=== PATIENT | female | born 2000 | race Caucasian/White ===

== ENCOUNTER 2023-04-06 16:36 | Observation (INO) ==
--- NOTE | 2023-04-06 17:10 | Emergency Department Note ---
Impression & Plan Acute appendicitis, Abdominal pain ED Provider Note NAME: ISIS OCAMPO AGE: 22 SEX: F : 2000 ARRIVES VIA: Walk-In INFORMANT: Patient ED PROVIDER(S): Viraj Thompson DO CHIEF COMPLAINT: Right lower quadrant abdominal pain HPI: Patient is a 22-year-old female who presents to the ER for right lower quadrant abdominal pain. Symptoms started this past Friday associated with nausea. Has been having some trouble with having bowel movements. Denies any dysuria, urgency, or frequency. Patient is not sexually active. No vaginal bleeding or vaginal discharge. No other exacerbating or remitting factors. Has been getting gradually worse. Has been constant. No belly surgeries. ADDITIONAL HISTORY OBTAINED: Per HPI Chronic Medical/Social Conditions Affecting Care: Per HPI PAST MEDICAL HISTORY:See Below PAST SURGICAL HISTORY:See Below FAMILY HISTORY:See Below SOCIAL HISTORY:See Below HOME MEDICATIONS:See Below ALLERGIES:See Below VITALS:See Below PHYSICAL EXAMINATION: GENERAL: Sitting up in bed, alert, well appearing, well nourished, no distress, non-toxic EYE EXAM: normal conjunctiva. OROPHARYNX: no exudate, no erythema, lips, buccal mucosa, and tongue normal and mucous membranes are moist NECK: supple, no nuchal rigidity, no adenopathy, non-tender LUNGS: Clear to auscultation. Normal chest wall mechanics HEART: no murmurs, S1 normal and S2 normal ABDOMEN: abdomen soft, TTP in RLQ, normo-active bowel sounds, no masses, no rebound or guarding. UPPER EXTREMITIES: upper extremities are grossly normal. LOWER EXTREMITIES: No pitting edema. NEURO EXAM: Normal sensorium, cranial nerves II-XII grossly intact, normal speech, no gross weakness of arms, no gross weakness of legs. MEDICAL DECISION MAKING: Patient is a 22-year-old female who presents ER for right lower quadrant abdominal pain. IV was established blood work was obtained. Labs show mild leukocytosis of 15,000. No significant anemia. BMP with mild hypokalemia 3.4. LFTs bilirubin was unremarkable. Lipase was normal. UA was clean. was negative. CT abdomen pelvis confirms acute appendicitis. Patient was given IV cefoxitin. Discussed with general surgery and patient was taken to the OR. External Records Reviewed: None Consults/Care Managements Discussions: Per [facility] Triage Nursing notes reviewed. Limited review of prior medical records performed Vital Signs: reviewed and remarkable for HTN Differential diagnosis: Differential diagnoses includes but is not limited to gastritis, peptic ulcer disease, GERD, gallbladder disease, pancreatitis, small bowel obstruction, appendicitis, diverticulitis, hernia, urinary tract infection, torsion, perforation, trauma, infectious. ER treatment provided: See below Diagnostics interpreted by me include EKG and cardiac monitoring as listed below: -Cardiac Monitoring: An order was placed for continuous cardiac monitoring. The monitor shows a rate of 101 with sinus rhythm. -ECG: none -Laboratory studies:Interpreted by me as stated above in MDM and shown below. Imaging studies: Xrays: As interpreted by me:none CTs show: CT abdomen pelvis per my read showed no obvious bowel obstruction CT abdomen pelvis per radiology showed acute appendicitis Procedures:none Critical Care: None Past Med/Surg History Social History Smoking Status: Never smoker Feels Safe at Home: Yes Allergies Allergies Allergy/AdvReac Type Severity Reaction Status Date / Time No Known Allergies Allergy Unverified 04/06/23 19:41 Home Meds Home Medications Medication Instructions Recorded Confirmed No Known Home Medications 04/06/23 04/06/23 Results & Data (ED) Vital Signs Vital Signs - 24 hr 04/06/23 16:39 04/06/23 17:05 04/06/23 17:10 Temperature 36.8 C Temperature Source Temporal Artery Scan Pulse Rate 107 H 106 H 99 H Pulse Rate from SpO2 Sensor Pulse Rhythm Regular Respiratory Rate 18 12 Respiratory Effort / Characteristics Non-Labored Spontaneous Respiratory Depth Normal Respiratory Pattern Regular Blood Pressure 145/88 H Blood Pressure Mean 107 Pulse Oximetry 95 98 Oxygen Delivery Method Room Air Room Air Sepsis Recent Fever Within 48 Hours No Sepsis New/Unexplained Change in Mental Status No Sepsis Action Taken by Nursing No Action Required 04/06/23 17:10 04/06/23 17:30 04/06/23 18:10 Temperature Temperature Source Pulse Rate 111 H 90 98 H Pulse Rate from SpO2 Sensor Pulse Rhythm Respiratory Rate 15 20 22 Respiratory Effort / Characteristics Respiratory Depth Respiratory Pattern Blood Pressure 138/100 136/107 H 134/89 Blood Pressure Mean 112 120 104 Pulse Oximetry 94 98 98 Oxygen Delivery Method Room Air Room Air Sepsis Recent Fever Within 48 Hours Sepsis New/Unexplained Change in Mental Status Sepsis Action Taken by Nursing 04/06/23 19:00 04/06/23 19:10 04/06/23 19:20 Temperature Temperature Source Pulse Rate 110 H 109 H 117 H Pulse Rate from SpO2 Sensor 108 H 117 H Pulse Rhythm Respiratory Rate 20 15 17 Respiratory Effort / Characteristics Respiratory Depth Respiratory Pattern Blood Pressure 130/85 Blood Pressure Mean 100 Pulse Oximetry 99 100 99 Oxygen Delivery Method Room Air Sepsis Recent Fever Within 48 Hours Sepsis New/Unexplained Change in Mental Status Sepsis Action Taken by Nursing 04/06/23 19:30 04/06/23 19:40 04/06/23 19:50 Temperature Temperature Source Pulse Rate 130 H 111 H 113 H Pulse Rate from SpO2 Sensor 128 H 108 H Pulse Rhythm Respiratory Rate 14 17 22 Respiratory Effort / Characteristics Respiratory Depth Respiratory Pattern Blood Pressure Blood Pressure Mean Pulse Oximetry 100 100 Oxygen Delivery Method Sepsis Recent Fever Within 48 Hours Sepsis New/Unexplained Change in Mental Status Sepsis Action Taken by Nursing 04/06/23 19:52 04/06/23 19:52 04/06/23 20:10 Temperature Temperature Source Pulse Rate 97 H 101 H Pulse Rate from SpO2 Sensor 101 H Pulse Rhythm Respiratory Rate 21 31 H Respiratory Effort / Characteristics Respiratory Depth Respiratory Pattern Blood Pressure 133/90 Blood Pressure Mean 107 Pulse Oximetry 97 Oxygen Delivery Method Sepsis Recent Fever Within 48 Hours Sepsis New/Unexplained Change in Mental Status Sepsis Action Taken by Nursing 04/06/23 20:20 04/06/23 20:35 Temperature Temperature Source Pulse Rate 103 H Pulse Rate from SpO2 Sensor 104 H Pulse Rhythm Respiratory Rate 19 Respiratory Effort / Characteristics Respiratory Depth Respiratory Pattern Blood Pressure Blood Pressure Mean Pulse Oximetry 98 Oxygen Delivery Method Room Air Sepsis Recent Fever Within 48 Hours Sepsis New/Unexplained Change in Mental Status Sepsis Action Taken by Nursing Laboratory Data 04/06/23 16:58 04/06/23 16:58 Lab Results 04/06/23 04/06/23 Range/Units 16:58 17:19 WBC 15.24 H (4.8-10.8) K/ul RBC 4.77 (4.20-5.40) M/uL Hgb 14.3 (12.0-16.0) g/dl Hct 41.9 (37.0-47.0) % MCV 87.8 (80.0-100.0) fL MCH 30.0 (25.0-34.0) pg MCHC 34.1 (32.0-36.0) g/dL RDW Std Deviation 39.3 (36.4-46.3) fL RDW Coeff of Nay 12.2 (11.5-14.5) % Plt Count 255 (130-400) K/uL MPV 10.3 (9.4-12.4) fL Immature Gran % (Auto) 0.3 % Neut % (Auto) 80.3 % Lymph % (Auto) 12.1 % [place] % (Auto) 6.5 % Eos % (Auto) 0.5 % Baso % (Auto) 0.3 % Neut # (Auto) 12.25 H (1.40-6.50) K/uL Lymph # (Auto) 1.84 (1.20-3.40) K/uL [place] # (Auto) 0.99 H (0.11-0.59) K/uL Eos # (Auto) 0.08 (0.00-0.50) K/uL Baso # (Auto) 0.04 (0.00-0.20) K/uL Immature Gran # (Auto) 0.04 (0.01-0.20) K/uL Sodium 136 (136-145) mmol/L Potassium 3.4 L (3.5-5.1) mmol/L Chloride 98 (98-107) mmol/L Carbon Dioxide 27 (21-32) mmol/L Anion Gap 11 (3-11) BUN 6 (6-23) mg/dl Creatinine 0.79 (0.6-1.2) mg/dl Est Cr Clr Drug Dosing 122.8 ml/min Est GFR ( Amer) 124.9 ml/min Est GFR (Non-Af Amer) 107.8 ml/min BUN/Creatinine Ratio 7.6 L (10-20) Glucose 94 (70-99(Fasting)) mg/dl Calcium 10.9 H (8.6-10.3) mg/dl Total Bilirubin 0.8 (0.2-1.0) mg/dl AST 16 (13-39) U/L ALT 11 (7-52) U/L Alkaline Phosphatase 108 H (34-104) U/L Total Protein 8.9 H (6.0-8.3) gm/dl Albumin 5.1 H (3.4-5.0) gm/dl Globulin 3.8 (2.5-4.0) gm/dl Albumin/Globulin Ratio 1.3 (0.9-2) Lipase 5 L (11-82) U/L Urine Color Yellow Urine Appearance Clear (Clear) Urine pH 6.5 (4.5-7.5) Ur Specific [place] 1.004 (1.000-1.030) Urine Protein Negative (Negative) Urine Glucose (UA) Negative (Negative) Urine Ketones 1+ H (Negative) Urine Blood Negative (Negative) Urine Nitrite Negative (Negative) Urine Bilirubin Negative (Negative) Urine Urobilinogen Negative (Negative) Ur Leukocyte Esterase Negative (Negative) POC Ur Test NEG (NEG) Administered Medications Discontinued Medications Sodium Chloride (Nss) 1,000 mls @ 999 mls/hr IV .Q1H1M CAREY Stop: 04/06/23 19:15 Last Admin: 04/06/23 19:12 Dose: 999 mls/hr Documented By: Infusion: 04/06/23 18:33 Dose: Infused Documented By: Admin: 04/06/23 17:15 Dose: 999 mls/hr Documented By: MARGARET Cefoxitin Sodium (Mefoxin) 2,000 mg in 60 mls @ 100 mls/hr IV NOW STA Stop: 04/06/23 19:47 Last Admin: 04/06/23 19:42 Dose: 100 mls/hr Documented By: COREY Ioversol (Optiray 320 100ml) 89 ml IV ONCE ONE Stop: 04/06/23 18:20 Last Admin: 04/06/23 18:19 Dose: 89 ml Documented By: EDER Morphine Sulfate (Morphine Sulfate 4 Mg/Ml 1 Ml Carp\Vial) 4 mg IV NOW STA Stop: 04/06/23 19:52 Last Admin: 04/06/23 19:59 Dose: 4 mg Documented By: COREY Ondansetron HCl (Ondansetron Inj 2 Mg/Ml 2 Ml Vial) 4 mg IV NOW STA Stop: 04/06/23 19:52 Last Admin: 04/06/23 19:57 Dose: 4 mg Documented By: COREY Imaging Data Radiologist's Impression: Abdomen/Pelvis CT 04/06/23 17:07 CT abd pelvis IV con only CLINICAL HISTORY: rlq abd pain TECHNIQUE: Helical axial images of the abdomen and pelvis were obtained and displayed. Automated dose lowering techniques and/or adjustment according to patient size were utilized for this exam. This exam was performed with intravenous contrast. CT DOSE: 1033.51 mGy.cm COMPARISON: None available at the time of this dictation. FINDINGS: Lower chest: No acute abnormality. Liver: Unremarkable. No focal lesions are seen. Gallbladder and biliary tree: No calcified gallstones. Normal caliber wall. No intra- or extrahepatic biliary ductal dilation. Pancreas: Unremarkable, no focal lesions. Spleen: Splenule is incidentally noted. Adrenals: Unremarkable. Kidneys and ureters: Unremarkable. Bladder: Unremarkable. Reproductive organs: Bilateral ovarian cysts are seen. Bowel: The appendix is thickened and hyperenhancing measuring 12 mm in diameter with surrounding fluid. Lymph nodes Retroperitoneal: Unremarkable. Pelvic: Unremarkable. Mesenteric: Unremarkable. Peritoneum: Fat stranding is seen about the appendix with a small amount of free fluid. No drainable fluid collection is seen and there is no evidence of pneumoperitoneum. Vessels: Unremarkable. Abdominal wall: Unremarkable. Bones: Unremarkable. IMPRESSION: Findings are compatible with acute appendicitis without evidence of rupture or abscess formation. ACT 112: Negative or not required by law. Electronically signed by: Tad Mackenzie M.D. 04/06/2023 7:04 PM Discharge Plan Visit Data Chief Complaint: Abdominal Pain Stated Complaint: ABD PAIN, FEVER, BLOATING, LOWER BACK PAIN, NAUSEA ED Provider: Viraj Thompson Discharge Problem: Acute appendicitis, Abdominal pain Patient Disposition: Admitted As Inpatient Discharge Instructions Interventions: ED Discharge Assessment Last Done: 04/06/23 20:35 Discharge Problem: Acute appendicitis Qualifiers: Acute appendicitis type: unspecified acute appendicitis type Qualified Code(s): K35.80 - Unspecified acute appendicitis Abdominal pain Qualifiers: Abdominal location: unspecified location Qualified Code(s): R10.9 - Unspecified abdominal pain
[2023-04-06 17:14] LABS: Basophils # (auto) 0.04 K/uL (0.00-0.20); Basophils % (auto) 0.3 %; Eosinophils # (auto) 0.08 K/uL (0.00-0.50); Eosinophils % (auto) 0.5 %; Hematocrit (blood only) 41.9 % (37.0-47.0); Hemoglobin 14.3 g/dl (12.0-16.0); Immature Granulocytes # (auto) 0.04 K/uL (0.01-0.20); Immature Granulocytes % (auto) 0.3 %; Lymphocytes # (auto) 1.84 K/uL (1.20-3.40); Lymphocytes % (auto) 12.1 %; Mean Corpuscular Hgb Conc 34.1 g/dL (32.0-36.0); Mean Corpuscular Volume 87.8 fL (80.0-100.0); Mean Platelet Volume 10.3 fL (9.4-12.4); Monocytes # (auto) 0.99 K/uL (0.11-0.59); Monocytes % (auto) 6.5 %; Neutrophils # (auto) 12.25 K/uL (1.40-6.50); Neutrophils % (auto) 80.3 %; Platelet Count 255 K/uL (130-400); RDW Coefficient of Variation 12.2 % (11.5-14.5); RDW Standard Deviation 39.3 fL (36.4-46.3); Red Blood Count 4.77 M/uL (4.20-5.40); White Blood Count 15.24 K/ul (4.8-10.8)
[2023-04-06] MEDS: SODIUM CHLORIDE 0.9% 1,000 ML IV SCH ×2 (17:15→19:12)
[2023-04-06 17:32] LABS: Albumin Globulin Ratio 1.3 (0.9-2); Albumin Level 5.1 gm/dl (3.4-5.0); BUN Creatinine Ratio 7.6 (10-20); Bilirubin,Total 0.8 mg/dl (0.2-1.0); Calcium 10.9 mg/dl (8.6-10.3); Creatinine Clr Calc Pharmacy 122.8 ml/min; Est GFR (African American) 124.9 ml/min; Est GFR (Non-African American) 107.8 ml/min; Globulin 3.8 gm/dl (2.5-4.0); Potassium 3.4 mmol/L (3.5-5.1); Total Protein 8.9 gm/dl (6.0-8.3)
[2023-04-06 17:34] LABS: Appearance Urine Clear (Clear); Bilirubin Urine Negative (Negative); Blood Urine Negative (Negative); Color Urine Yellow; Glucose Urine UA Negative (Negative); Ketones Urine 1+ (Negative); Leukocyte Esterase Urine Negative (Negative); Nitrite Urine Negative (Negative); Protein Urine Negative (Negative); Specific Gravity Urine 1.004 (1.000-1.030); Urobilinogen Urine Negative (Negative); pH Urine 6.5 (4.5-7.5)
[2023-04-06] MEDS ORDERED: OPTIRAY 320 100ml IV ONE (18:19)
--- NOTE | 2023-04-06 19:06 | CT Scan Report ---
CT abd pelvis IV con only CLINICAL HISTORY: rlq abd pain TECHNIQUE: Helical axial images of the abdomen and pelvis were obtained and displayed. Automated dose lowering techniques and/or adjustment according to patient size were utilized for this exam. This e xam was performed with intravenous contrast. CT DOSE: 1033.51 mGy.cm COMPARISON: None available at the time of this dictation. FINDINGS: Lower chest: No acute abnormality. Liver: Unremarkable. No focal lesions are seen. Gallbladder and biliary tree: No calcified gallstones. Normal caliber wall. No intra- or extrahepatic biliary ductal dilation. Pancreas: Unremarkable, no focal lesions. Spleen: Splenule is incidentally noted. Adrenals: Unremarkable. Kidneys and ureters: Unremarkable. Bladder: Unremarkable. Reproductive organs: Bilateral ovarian cysts are seen. Bowel: The appendix is thickened and hyperenhancing measuring 12 mm in diameter with surrounding flui d. Lymph nodes Retroperitoneal: Unremarkable. Pelvic: Unremarkable. Mesenteric: Unremarkable. Peritoneum: Fat stranding is seen about the appendix with a small amount of free fluid. No drainable fluid collection is seen and there is no evidence of pneumoperitoneum. Vessels: Unremarkable. Abdominal wall: Unremarkable. Bones: Unremarkable. IMPRESSION: Findings are compatible with acute appendicitis without evidence of rupture or abscess formation. ACT 112: Negative or not required by law. Electronically signed by: Tad Mackenzie M.D. 04/06/2023 7:04 PM
[2023-04-06] MEDS ORDERED: cefOXitin 2,000 MG/60 ML BAG IV STA (19:12)
[2023-04-06] MEDS ORDERED: ONDANSETRON INJ 2 MG/ML 2 ML VIAL IV STA (19:51)
[2023-04-06] MEDS ORDERED: MoRPHine SULFATE 4 MG/ML 1 ML CARP\\VIAL IV STA (19:51)
--- NOTE | 2023-04-06 20:00 | History & Physical Report ---
Date of Service April 06, 2023 Assessment & Plan (1) Acute appendicitis: Plan 22-year-old woman presents with acute appendicitis. I discussed the risks and benefits of a laparoscopic appendectomy with her. All her questions were answered and she is agreeable to proceed. We will take her to the operating room at the earliest convenience. Consent has been obtained. History of Present Illness Primary Care Provider: [facility] 22-year-old woman presents with a 2-1/2-day history of diffuse mid abdominal pain sharp in character. This was accompanied by chills and nausea. She denies vomiting. She denies fevers. She has not had a bowel movement since Friday. Her last meal was this morning. The pain has slowly been worsening. It has localized to the bilateral lower quadrants. She has no surgical history. Allergies Allergy/AdvReac Type Severity Reaction Status Date / Time No Known Allergies Allergy Unverified 04/06/23 19:41 Home Medications Medication Instructions Recorded Confirmed Type No Known Home Medications 04/06/23 04/06/23 History Past Med/Surg History Social History Smoking Status: Never smoker Feels Safe at Home: Yes Review of Systems Review of Systems: All systems reviewed & are unremarkable except as noted in HPI & below Physical Exam Constitutional: WD/WN, vitals as above Eyes: PERRL, conjunctivae normal, anicteric sclerae Neck: trachea midline, no thyromegaly Respiratory: normal respiratory effort; no respiratory distress Cardiovascular: Rate/Rhythm: regular rhythm and + tachycardic Gastrointestinal (Abdomen): Inspection/Auscultation: abdomen normal to inspection; abdomen not distended Percussion/Palpation: + abdomen tender (Bilateral lower quadrants) and abdomen soft; no guarding and abdomen not rigid Skin: no rashes, warm and dry Psychiatric: A+Ox3, euthymic affect Results & Data Results & Data Vital Signs (Past 12 Hours) Vital Signs Temp Pulse Resp BP Pulse Ox O2 Del Method 04/06/23 19:00 110 H 20 130/85 99 Room Air 04/06/23 18:10 98 H 22 134/89 98 Room Air 04/06/23 17:30 90 20 136/107 H 98 04/06/23 17:10 111 H 15 138/100 94 Room Air 04/06/23 17:10 99 H 12 98 Room Air 04/06/23 17:05 106 H 04/06/23 16:39 36.8 C 107 H 18 145/88 H 95 Room Air Laboratory Results 04/06/23 04/06/23 Range/Units 17:19 16:58 WBC 15.24 H (4.8-10.8) K/ul RBC 4.77 (4.20-5.40) M/uL Hgb 14.3 (12.0-16.0) g/dl Hct 41.9 (37.0-47.0) % MCV 87.8 (80.0-100.0) fL MCH 30.0 (25.0-34.0) pg MCHC 34.1 (32.0-36.0) g/dL RDW Std Deviation 39.3 (36.4-46.3) fL RDW Coeff of Nay 12.2 (11.5-14.5) % Plt Count 255 (130-400) K/uL MPV 10.3 (9.4-12.4) fL Immature Gran % (Auto) 0.3 % Neut % (Auto) 80.3 % Lymph % (Auto) 12.1 % [place] % (Auto) 6.5 % Eos % (Auto) 0.5 % Baso % (Auto) 0.3 % Neut # (Auto) 12.25 H (1.40-6.50) K/uL Lymph # (Auto) 1.84 (1.20-3.40) K/uL [place] # (Auto) 0.99 H (0.11-0.59) K/uL Eos # (Auto) 0.08 (0.00-0.50) K/uL Baso # (Auto) 0.04 (0.00-0.20) K/uL Immature Gran # (Auto) 0.04 (0.01-0.20) K/uL Sodium 136 (136-145) mmol/L Potassium 3.4 L (3.5-5.1) mmol/L Chloride 98 (98-107) mmol/L Carbon Dioxide 27 (21-32) mmol/L Anion Gap 11 (3-11) BUN 6 (6-23) mg/dl Creatinine 0.79 (0.6-1.2) mg/dl Est Cr Clr Drug Dosing 122.8 ml/min Est GFR ( Amer) 124.9 ml/min Est GFR (Non-Af Amer) 107.8 ml/min BUN/Creatinine Ratio 7.6 L (10-20) Glucose 94 (70-99(Fasting)) mg/dl Calcium 10.9 H (8.6-10.3) mg/dl Total Bilirubin 0.8 (0.2-1.0) mg/dl AST 16 (13-39) U/L ALT 11 (7-52) U/L Alkaline Phosphatase 108 H (34-104) U/L Total Protein 8.9 H (6.0-8.3) gm/dl Albumin 5.1 H (3.4-5.0) gm/dl Globulin 3.8 (2.5-4.0) gm/dl Albumin/Globulin Ratio 1.3 (0.9-2) Lipase 5 L (11-82) U/L Urine Color Yellow Urine Appearance Clear (Clear) Urine pH 6.5 (4.5-7.5) Ur Specific [place] 1.004 (1.000-1.030) Urine Protein Negative (Negative) Urine Glucose (UA) Negative (Negative) Urine Ketones 1+ H (Negative) Urine Blood Negative (Negative) Urine Nitrite Negative (Negative) Urine Bilirubin Negative (Negative) Urine Urobilinogen Negative (Negative) Ur Leukocyte Esterase Negative (Negative) POC Ur Test NEG (NEG) Diagnostic Findings CT abd pelvis IV con only CLINICAL HISTORY: rlq abd pain TECHNIQUE: Helical axial images of the abdomen and pelvis were obtained and displayed. Automated dose lowering techniques and/or adjustment according to patient size were utilized for this exam. This exam was performed with intravenous contrast. CT DOSE: 1033.51 mGy.cm COMPARISON: None available at the time of this dictation. FINDINGS: Lower chest: No acute abnormality. Liver: Unremarkable. No focal lesions are seen. Gallbladder and biliary tree: No calcified gallstones. Normal caliber wall. No intra- or extrahepatic biliary ductal dilation. Pancreas: Unremarkable, no focal lesions. Spleen: Splenule is incidentally noted. Adrenals: Unremarkable. Kidneys and ureters: Unremarkable. Bladder: Unremarkable. Reproductive organs: Bilateral ovarian cysts are seen. Bowel: The appendix is thickened and hyperenhancing measuring 12 mm in diameter with surrounding fluid. Lymph nodes Retroperitoneal: Unremarkable. Pelvic: Unremarkable. Mesenteric: Unremarkable. Peritoneum: Fat stranding is seen about the appendix with a small amount of free fluid. No drainable fluid collection is seen and there is no evidence of pneumoperitoneum. Vessels: Unremarkable. Abdominal wall: Unremarkable. Bones: Unremarkable. IMPRESSION: Findings are compatible with acute appendicitis without evidence of rupture or abscess formation. ACT 112: Negative or not required by law. (1) Acute appendicitis Acute appendicitis type: with localized peritonitis Appendicitis gangrene presence: without gangrene Appendicitis perforation presence: without perforation Appendicitis abscess presence: without abscess Qualified Code(s): K35.30 - Acute appendicitis with localized peritonitis, without perforation or gangrene
[2023-04-06] MEDS ORDERED: ROCURONIUM BROMIDE 10 MG/ML 5 ML VIAL IV ONE (20:22)
[2023-04-06] MEDS ORDERED: PROPOFOL IV EMULSION 10 MG/ML 20 ML VIAL IV ONE (20:22)
[2023-04-06] MEDS ORDERED: fentaNYL citrate PF 100 MCG/2 ML VIAL ONE (20:22)
[2023-04-06] MEDS ORDERED: BUPIVACAINE/EPINEPHRINE 0.5% MPF 1:200,000 30 ML VIAL ONE (20:35)
[2023-04-06] MEDS ORDERED: HYDROmorphone INJ 1 MG/ML SYRINGE IV PRN (20:40)
[2023-04-06] MEDS ORDERED: ONDANSETRON INJ 2 MG/ML 2 ML VIAL IV PRN ×2 (20:40→22:35)
[2023-04-06] MEDS ORDERED: fentaNYL citrate PF 100 MCG/2 ML VIAL IV PRN (20:40)
[2023-04-06] MEDS ORDERED: ATROPINE SULFATE 0.1 MG/ML 10ML SYR IV PRN (20:40)
[2023-04-06] MEDS ORDERED: ePHEDrine sulfate 50 MG/ML AMP IV PRN (20:40)
--- NOTE | 2023-04-06 20:40 | Anesthesiology Consultation ---
Date of Service April 06, 2023 Assessment & Plan ASA ASA1E Proposed Anesthesia Anesthesia Type: General Risk / Benefits Reviewed With: PT / POA / Parent / Guardian, Accepts Plan and Informed Consent Obtained History Surgery Operation Date: 04/06/23 20:30 Proposed Procedures p Laparoscopic Appendectomy - Ion Davey MD Height/Weight Height: 5 ft 10 in Weight: 79 kg Allergies Allergy/AdvReac Type Severity Reaction Status Date / Time No Known Allergies Allergy Unverified 04/06/23 19:41 Medications Home Medications Medication Instructions Recorded Confirmed Last Taken No Known Home Medications 04/06/23 04/06/23 Unknown Exercise / Class Metabolic Activity II 4-5 Yardwork/Stairs/Walk up hill Past Anesthesia History No Hx of Anesthesia Complications and No Family Hx of Anesthesia Complications History of PONV No Hx of PONV and No Hx of Motion Sickness Social History Smoking Status: Never smoker Review of Systems denies fever/cough/ colds/ chest pain/ SOB/ BO denies BO Physical Exam Vital Signs Last Vital Signs Temp 36.8 C 04/06/23 16:39 Pulse 103 H 04/06/23 20:20 Resp 19 04/06/23 20:20 BP 133/90 04/06/23 19:52 Pulse Ox 98 04/06/23 20:20 O2 Del Method Room Air 04/06/23 20:35 ENMT Mouth: no TMJ abnormality and no dentition abnormality Thyromental Distance: > or= 3.5 Finger Breadths Mallampati Class: II Neck neck extension not limited Respiratory normal respiratory effort; no respiratory distress Auscultation: lungs clear to auscultation bilaterally Cardiovascular Rate/Rhythm: regular rate and regular rhythm Neurologic moves all extremities Psychiatric Orientation: alert and oriented x 3 Testing Laboratory Results 04/06/23 16:58 04/06/23 16:58 Urine Color Yellow 04/06/23 17:19 Urine Appearance Clear (Clear) 04/06/23 17:19 Urine pH 6.5 (4.5-7.5) 04/06/23 17:19 Ur Specific [place] 1.004 (1.000-1.030) 04/06/23 17:19 Urine Protein Negative (Negative) 04/06/23 17:19 Urine Glucose (UA) Negative (Negative) 04/06/23 17:19 Urine Ketones 1+ (Negative) H 04/06/23 17:19 Urine Nitrite Negative (Negative) 04/06/23 17:19 Ur Leukocyte Esterase Negative (Negative) 04/06/23 17:19 04/06/23 17:19 POC Ur Test NEG
[2023-04-06] MEDS ORDERED: DEXAMETHASONE SOD INJ 4 MG/ML VIAL ONE (21:04)
[2023-04-06] MEDS ORDERED: KETOROLAC 30 MG/ML VIAL ONE (21:04)
[2023-04-06] MEDS ORDERED: ONDANSETRON INJ 2 MG/ML 2 ML VIAL ONE (21:04)
[2023-04-06] MEDS ORDERED: SUGAMMADEX SODIUM 200 MG/2 ML VIAL IV ONE (21:08)
--- NOTE | 2023-04-06 21:29 | Operative Report ---
Post Operative Report Pre & Post Diagnosis Operation Date: 04/06/23 20:30 Pre-Op Diagnosis: Acute Appendicitis Post-Op Diagnosis: Acute Appendicitis I identified the patient and participated in the time-out.: Yes Procedure Operation Date: 04/06/23 20:30 Actual Procedures p Laparoscopic Appendectomy(Not Applicable) - Ion Davey MD Surgeon Ion Davey MD Central Office Operator Supervisor None Estimated Blood Loss 5 Findings Consistent with Post-Op Diagnosis Acute appendicitis, no perforation Specimens Appendix Drains None Anesthesia Type General Complications No immediate complications Description of Procedure The patient was taken to the operating room, and placed supine on the operating table. A timeout was performed, perioperative antibiotics were administered, SCD boots were placed. After adequate anesthesia and analgesia was obtained, the abdomen was prepped and draped in the normal sterile fashion. A 1 cm incision was made in the supraumbilical region and carried down to the level of the fascia. A trach hook was used to grasp the fascia and elevated and a varies needle was used to enter the abdominal cavity. The abdomen was insufflated to a pressure of 15 mmHg, and a 5 mm trocar was placed in this location. A 5 mm 30 degree laparoscope was placed into the abdominal cavity, and the abdomen was surveyed. The patient was placed in Trendelenburg and slightly to the left. One 5 mm trocar was placed in the right upper quadrant, and one 12 mm trocar was placed in the left lower quadrant under direct visualization. The right colon was identified and traced down to the cecum. The appendix was identified and elevated anteriorly and medially. A window was created at the base of the appendix with a [place] dissector. The Endo LUÍS stapler was used to transect the appendix at its base through noninflamed tissue, and subsequently the mesoappendix. The appendix was placed in an Endo Catch bag, and removed via the left lower quadrant port site. Attention was turned to hemostasis, which was excellent. The abdomen was copiously irrigated and suctioned free, and again hemostasis was found to be excellent. All trochars removed under direct visualization. The abdomen was desufflated. The fascia in the 12 mm port site was closed with a 0 Vicryl suture. The skin was closed with a running 4-0 Monocryl subcuticular stitch. Dermabond was applied. The patient tolerated the procedure without complication, and was transferred in stable condition to the PACU. All instrument, needle, and sponge counts were correct at the end of the case. I attest to the content of the Intraoperative Record and any orders documented therein. Any exceptions are noted below.
--- NOTE | 2023-04-06 21:47 | Anesthesiology Progress Note ---
Date of Service April 06, 2023 Anesthesia Post Procedure Vital Signs Vital Signs: Temp Pulse Resp BP Pulse Ox O2 Del Method 04/06/23 20:35 Room Air 04/06/23 20:20 103 H 19 98 04/06/23 20:10 101 H 31 H 97 04/06/23 19:52 97 H 21 04/06/23 19:52 133/90 04/06/23 19:50 113 H 22 04/06/23 19:40 111 H 17 100 04/06/23 19:30 130 H 14 100 04/06/23 19:20 117 H 17 99 04/06/23 19:10 109 H 15 100 04/06/23 19:00 110 H 20 130/85 99 Room Air 04/06/23 18:10 98 H 22 134/89 98 Room Air 04/06/23 17:30 90 20 136/107 H 98 04/06/23 17:10 111 H 15 138/100 94 Room Air 04/06/23 17:10 99 H 12 98 Room Air 04/06/23 17:05 106 H 04/06/23 16:39 36.8 C 107 H 18 145/88 H 95 Room Air Pain Intensity Lower Abdomen: Pain Intensity: 6 Transfer of Care Handoff Completed per policy Notes Mental Status: alert / awake / arousable and participated in evaluation Patient Amnestic to Procedure: Yes Nausea / Vomiting: adequately controlled Pain: adequately controlled Airway Patency, RR, SpO2: stable & adequate BP & HR: stable & adequate Hydration State: stable & adequate Anesthetic Complications: no major complications apparent and Pt Satisfied with anesthetic care
[2023-04-06] MEDS ORDERED: KETOROLAC 30 MG/ML VIAL IV PRN (22:35)
[2023-04-06] MEDS ORDERED: ACETAMINOPHEN 1,000 MG/100 ML VIAL IV PRN (22:35)
[2023-04-06] MEDS ORDERED: PROMETHAZINE HCL 12.5 MG in SODIUM CHLORIDE 0.9% 50 ML IV PRN (22:35)
[2023-04-06] MEDS ORDERED: diphenhydrAMINE Capsule 25 MG CAP PO PRN (22:35)
[2023-04-06] MEDS ORDERED: oxyCODONE/ACETAMINOPHEN 5mg/325mg TAB PO PRN (22:35)
[2023-04-06] MEDS ORDERED: MoRPHine SULFATE 2 MG/ML CARP IV PRN (22:35)
[2023-04-07] MEDS ORDERED: ENOXAPARIN INJ 40 MG/0.4 ML SYR SQ SCH (08:00)
--- NOTE | 2023-04-07 10:18 | Discharge Summary ---
Date of Service April 07, 2023 Admission HPI Per Admitting Provider 22-year-old woman presents with a 2-1/2-day history of diffuse mid abdominal pain sharp in character. This was accompanied by chills and nausea. She denies vomiting. She denies fevers. She has not had a bowel movement since Friday. Her last meal was this morning. The pain has slowly been worsening. It has localized to the bilateral lower quadrants. She has no surgical history. Principal Diagnosis Acute appendicitis Discharge Data Allergies Allergy/AdvReac Type Severity Reaction Status Date / Time No Known Allergies Allergy Unverified 04/06/23 19:41 Consultations 04/06/23 19:12 ED Decision to Admit Stat Procedures Performed Operation Date: 04/06/23 20:30 Actual Procedures p Laparoscopic Appendectomy(Not Applicable) - Ion Davey MD Ordered Studies 04/06/23 17:07 CT abd pelvis IV con only Stat Hospital Course (1) Acute appendicitis: Patient was admitted through the emergency department taken to the operating room for a laparoscopic appendectomy, the details of which are dictated in a separate operative note. Postoperatively she did well and was transferred in stable condition to the PACU and subsequently to the floor. DVT prophylaxis was maintained with SCD boots and subcutaneous Lovenox. Aggressive pulmonary toilet with early ambulation and incentive spirometry. Pain was controlled with IV and subsequently p.o. pain meds. Her diet was advanced as tolerated. By the date of discharge, she was tolerating regular diet, not requiring any IV pain medications, and was discharged home in stable condition. Instructions were given. She will follow-up in clinic in 2 weeks. Total Time Total Time Spent Total Time Spent (In Minutes): 30 minutes Discharge Plan Discharge Items Patient Disposition: Home - Self-Care Reason For Visit: POSTOP APPENDICITIS Discharge Diagnosis: Acute appendicitis Activity: Per Instructions section Lifting: No more than 25 pounds Sexual Activity: Wait until after follow-up appointment Exercise/Sports: Wait until after follow-up appointment Non-emergency contact: Surgeon Call non-emergency contact if: you have any medication questions, your symptoms worsen, your pain is not controlled, your pain is worsening, your pain is unusual for you, your temperature is above 101.5, your wound has increased redness, your wound has increased drainage and your wound pain has increased Follow-up/Referrals: PCP,NO [Physician] - Diet: Regular Addtl Attending Provider Instructions: Post-Surgical ~Discharge Instructions Activity Recommendations: - lifting limitation: (20 pounds for 2 weeks), - exercise/sex/sports limit: (nonstrenuous for 2 weeks), - driving or machine use limit: (none for 1 week), - Shower/bathe limit: (may shower beginning tomorrow) Diet: - Resume previous diet SPECIAL CARE INSTRUCTIONS: - May shower in 24 hours. Let water run over area and pat dry. - Leave Dermabond in place. - Call the surgeon's office with any questions or concerns - - (ex. temperature higher than 101 degrees F, excessive bleeding or pain). MEDICATIONS: - Resume previous medications unless instructed otherwise by your surgeon. - Ibuprofen 600 mg every 6 hours with food - Percocet 1 every 4 hours, as needed for pain FOLLOW UP VISIT: - If not already scheduled, please call the office to schedule a two week follow-up appointment. Office number Pending Studies at Discharge: No Stand-Alone Forms: My [facility], Smoking Cessation Medications and DC Order Prescriptions: New oxycodone-acetaminophen [Percocet] 5-325 mg tablet 1 tab PO Q6H PRN (Reason: pain) Qty: 10 0RF Discharge Orders: Discharge Order (Routine); Ordered 04/07/23 Ordered By: Ion Davey Admission Data Admit Date/Time: 04/06/23 21:32 Attending Provider: Ion Davey Admit Provider: Ion Davey Primary Care Provider: [facility] Other Providers: Ion Davey
--- NOTE | 2023-04-07 10:21 | Surgery Progress Note ---
Date of Service April 07, 2023 Assessment & Plan (1) Acute appendicitis: Plan: POD #1 s/p lap appendectomy Doing well Advance diet as tolerated Discharge to home after lunch Follow-up in clinic in 2 weeks Admission and Anticipated Discharge Date Admission Date: April 06, 2023 Subjective Doing well. Tolerating diet. Minimal pain. No nausea or vomiting. No fevers overnight. Physical Exam Physical Exam: NAD, A&O x3 AFVSS Abdomen: Soft, mild TTP at incisions Incisions C/D/I; Dermabond in place Results & Data Vital Signs (Past 12 Hours) Vital Signs Temp Pulse Resp BP Pulse Ox O2 Del Method 04/07/23 07:57 36.5 C 70 18 109/69 99 Room Air 04/07/23 07:39 Room Air 04/07/23 05:40 36.5 C 81 18 106/59 L 97 Room Air 04/07/23 01:49 36.6 C 75 18 116/77 95 Room Air 04/07/23 00:58 36.6 C 72 18 113/70 95 Room Air 04/06/23 23:41 36.8 C 86 16 112/73 94 Room Air 04/06/23 23:10 36.8 C 83 16 109/73 94 Room Air 04/06/23 22:35 37.3 C 96 H 16 111/71 95 Room Air (1) Acute appendicitis Acute appendicitis type: unspecified acute appendicitis type Qualified Code(s): K35.80 - Unspecified acute appendicitis
== END 2023-04-07 12:47 | disposition home or self-care (01) ==
LOC: ED 16:36 → 3N 20:35 → OR 20:35

== ENCOUNTER 2023-04-28 07:22 | Inpatient (IN) ==
[2023-04-28] MEDS ORDERED: KETOROLAC TROMETHAMINE 15 MG/ML VIAL IV STA (07:39)
[2023-04-28] MEDS ORDERED: HYDROmorphone INJ 0.5 MG/0.5 ML SYR IV STA (07:39)
[2023-04-28] MEDS ORDERED: ONDANSETRON INJ 2 MG/ML 2 ML VIAL IV STA ×2 (07:39→08:50)
[2023-04-28] MEDS ORDERED: SODIUM CHLORIDE 0.9% 1,000 ML IV STA (07:39)
--- NOTE | 2023-04-28 07:49 | Emergency Department Note ---
ED Provider Note History of Present Illness Chief Complaint: Pelvic Pain Stated Complaint: RUPTURED OVARIAN CYST-PAIN MEDS NOT WORKING Time Seen by Provider: 04/28/23 07:28 22-year-old female who presents the emergency department with complaint of worsening abdominal pain and nausea/vomiting. The patient was seen overnight for her presenting symptoms. She did have a CT and ultrasound performed, showing a left ovarian cyst. The patient was provided home packs for Percocet and Zofran tablets, but unfortunately has been unable to control symptoms. It is noted that the patient is 3 weeks status post laparoscopic appendectomy. The patient rates her discomfort a 9 out of 10. She denies any fever or chills. The patient has not noticed any vaginal bleeding or discharge. Home Medications Medication Instructions Recorded Confirmed Type No Known Home Medications 04/28/23 04/28/23 History Allergies Allergy/AdvReac Type Severity Reaction Status Date / Time No Known Allergies Allergy Unverified 04/06/23 19:41 Past Med/Surg History Medical History Cyst of left ovary Acute appendicitis Surgical History History of laparoscopic appendectomy Social History Smoking Status: Never smoker Second Hand Exposure: No; Do You Dip or Chew Tobacco: No; Hx Alcohol Use: Yes Alcohol type: other Hx Substance Use: No Preferred Language: Tunisian Communication Ability: Effective Surgery Assistant Required: No Beliefs That Will Affect Care: None Current Living Situation: Other Current Living Situation Comment: roommates Feels Safe at Home: Yes Assistive Devices: None Physical Exam Vital Signs Vital Signs - 24 hr 04/28/23 07:25 04/28/23 07:39 04/28/23 07:40 Temperature 36.5 C Temperature Source Oral Pulse Rate 88 79 Pulse Rate [Apical] 68 Pulse Rate from SpO2 Sensor 80 Respiratory Rate 16 16 16 Respiratory Effort / Characteristics Non-Labored Non-Labored Spontaneous Respiratory Depth Normal Normal Respiratory Pattern Regular Blood Pressure 139/94 134/90 Blood Pressure [Right Arm] 134/90 Blood Pressure Mean 109 104 Blood Pressure Mean [Right Arm] 104 Blood Pressure Position [Right Arm] Sitting Pulse Oximetry 97 98 98 Oxygen Delivery Method Room Air Room Air Room Air Oxygen Flow Rate Sepsis Recent Fever Within 48 Hours No Sepsis New/Unexplained Change in Mental Status N/A Sepsis Action Taken by Nursing No Action Required Oxygen Flow Rate - Titration Pulse Oximetry Post Tiitration 04/28/23 08:00 04/28/23 08:20 04/28/23 08:30 Temperature Temperature Source Pulse Rate 77 77 64 Pulse Rate [Apical] Pulse Rate from SpO2 Sensor 77 64 Respiratory Rate 19 16 14 Respiratory Effort / Characteristics Respiratory Depth Respiratory Pattern Blood Pressure 132/97 134/89 140/94 Blood Pressure [Right Arm] Blood Pressure Mean 108 104 109 Blood Pressure Mean [Right Arm] Blood Pressure Position [Right Arm] Pulse Oximetry 98 98 100 Oxygen Delivery Method Room Air Room Air Room Air Oxygen Flow Rate Sepsis Recent Fever Within 48 Hours Sepsis New/Unexplained Change in Mental Status Sepsis Action Taken by Nursing Oxygen Flow Rate - Titration Pulse Oximetry Post Tiitration 04/28/23 09:00 04/28/23 09:55 04/28/23 10:00 Temperature Temperature Source Pulse Rate 64 73 61 Pulse Rate [Apical] Pulse Rate from SpO2 Sensor 66 72 60 Respiratory Rate 16 20 16 Respiratory Effort / Characteristics Respiratory Depth Respiratory Pattern Blood Pressure 140/89 139/88 135/95 Blood Pressure [Right Arm] Blood Pressure Mean 106 105 108 Blood Pressure Mean [Right Arm] Blood Pressure Position [Right Arm] Pulse Oximetry 99 94 98 Oxygen Delivery Method Room Air Room Air Room Air Oxygen Flow Rate Sepsis Recent Fever Within 48 Hours Sepsis New/Unexplained Change in Mental Status Sepsis Action Taken by Nursing Oxygen Flow Rate - Titration Pulse Oximetry Post Tiitration 04/28/23 10:07 Temperature Temperature Source Pulse Rate Pulse Rate [Apical] Pulse Rate from SpO2 Sensor Respiratory Rate Respiratory Effort / Characteristics Respiratory Depth Respiratory Pattern Blood Pressure Blood Pressure [Right Arm] Blood Pressure Mean Blood Pressure Mean [Right Arm] Blood Pressure Position [Right Arm] Pulse Oximetry 87 L Oxygen Delivery Method Room Air Oxygen Flow Rate 0 Sepsis Recent Fever Within 48 Hours Sepsis New/Unexplained Change in Mental Status Sepsis Action Taken by Nursing Oxygen Flow Rate - Titration 2 Pulse Oximetry Post Tiitration 100 CONSTITUTIONAL: Healthy and well nourished. Patient appears in moderate severe discomfort with nausea. HEENT: No scleral icterus or conjunctival injection/pallor. Mucous membranes are dry. RESPIRATORY: Clear to auscultation bilaterally with no wheezing, crackles, rhonchi or stridor. CARDIOVASCULAR: Regular rate and rhythm with no murmurs, rubs or gallops. GASTROINTESTINAL: Bowel sounds present in all quadrants. Patient has generalized abdominal tenderness to palpation without rigidity, guarding or rebound. Negative CVA tenderness. MUSCULOSKELETAL: Full range of motion of all joints without discomfort. INTEGUMENTARY: No rash or other significant dermatologic conditions noted. HEMATOLOGIC: No ecchymosis or petechiae. PSYCHIATRIC: Positive affect. NEUROLOGIC: No focal neurologic deficits noted. Course Course Patient history and physical exam were performed. Nurses notes were reviewed. Vital signs were reviewed and were normal. I did review prior medical records from yesterday. [facility] radiologist reports for CT imaging did not show any other concerning abdominal findings other than concern for possible partially ruptured left ovarian cyst. Ultrasound confirmed that it was a simple ovarian cyst with free pelvic fluid. No evidence for torsion was appreciated. IV access was established, and labs are drawn. The patient was hydrated with a liter normal saline, and administered IV Dilaudid, Zofran and Toradol. Review of labs shows a normal CBC, CMP and lipase. Serum was negative from last evening. Ultrasound techs wanted the patient to fill her bladder, therefore urinalysis was delayed. While awaiting ultrasound studies, the patient reported persistent pain and nausea. It is noted that when the patient was sleeping, her oxygen levels did drop into the lower 80s, but rebounded well into the upper 90s when awake. The patient was placed on O2 via nasal cannula at 2 L/min. The patient was administered additional IV Toradol, Tylenol and Zofran. Repeat pelvic ultrasound was eventually performed, showing no change in the patient's 4.3 cm left ovarian cyst. At this point, I did ask radiologist Dr. Spangler (who performed today's ultrasound read, and compared to yesterday's imaging studies) to look at yesterday CT imaging. He was concern for a complex small bowel obstruction. He recommended surgical evaluation, with possibility of repeat CT imaging. Findings were discussed with the patient and father, explaining the reason why I asked radiology to overread CT imaging. The case was then initially discussed with Dr. Ramos, who reached out to Dr. Davey (who performed the initial surgery), and came to the emergency department for further evaluation. While awaiting his evaluation, the patient did request something additional for nausea, and was administered Phenergan 12.5 mg IVP. It is noted that she was drinking fluids, although an order was initially placed for n.p.o. status. After Dr. Davey's evaluation, he has recommended that the hospitalist service admit the patient. Dr. Davey will further discuss potential small bowel follow-through with radiology, versus repeat CT imaging. He also recommended an NG tube for further management. The case was then discussed with Dr. Chen, [facility] hospitalist, who agreed to evaluate the patient. Please see hospitalist and surgical dictations for further treatment and final disposition. Administered Medications Hydromorphone HCl (Hydromorphone Inj 0.5 Mg/0.5 Ml Syr) 0.5 mg IV Q3H PRN PRN Reason: Pain Stop: 05/12/23 12:32 Last Admin: 04/28/23 15:19 Dose: 0.5 mg Documented By: AIDA Parenteral Electrolytes (Plasma-Lyte A Ph 7.4) 1,000 mls @ 125 mls/hr IV .Q8H CAREY Stop: 05/28/23 12:44 Last Admin: 04/28/23 14:50 Dose: 125 mls/hr Documented By: AIDA Ondansetron HCl (Ondansetron Inj 2 Mg/Ml 2 Ml Vial) 4 mg IV Q4H PRN PRN Reason: Nausea Stop: 05/28/23 12:37 Last Admin: 04/28/23 15:20 Dose: 4 mg Documented By: AIDA Discontinued Medications Hydromorphone HCl (Hydromorphone Inj 0.5 Mg/0.5 Ml Syr) 0.5 mg IV NOW STA Stop: 04/28/23 07:40 Last Admin: 04/28/23 07:54 Dose: 0.5 mg Documented By: JUANITA Sodium Chloride (Nss) 1,000 mls @ 999 mls/hr IV .Q1H1M STA Stop: 04/28/23 08:39 Last Infusion: 04/28/23 08:59 Dose: Infused Documented By: Admin: 04/28/23 07:54 Dose: 999 mls/hr Documented By: JUANITA Acetaminophen (Ofirmev) 1,000 mg in 100 mls @ 400 mls/hr IV NOW STA Stop: 04/28/23 09:04 Last Infusion: 04/28/23 09:30 Dose: Infused Documented By: Admin: 04/28/23 08:59 Dose: 400 mls/hr Documented By: JUANITA Promethazine HCl (Phenergan) 12.5 mg in 50.5 mls @ 202 mls/hr IV NOW STA Stop: 04/28/23 11:11 Last Infusion: 04/28/23 11:36 Dose: Infused Documented By: Admin: 04/28/23 11:17 Dose: 202 mls/hr Documented By: AIDA Potassium Chloride (K Jonathon / Wtr) 10 meq in 100 mls @ 100 mls/hr IV Q1H CAREY Stop: 04/28/23 15:29 Last Admin: 04/28/23 15:19 Dose: 100 mls/hr Documented By: AIDA Ketorolac Tromethamine (Ketorolac Tromethamine 15 Mg/Ml Vial) 10 mg IV NOW STA Stop: 04/28/23 07:40 Last Admin: 04/28/23 07:53 Dose: 10 mg Documented By: JUANITA Ketorolac Tromethamine (Ketorolac Tromethamine 15 Mg/Ml Vial) 10 mg IV NOW ONE Stop: 04/28/23 08:51 Last Admin: 04/28/23 08:59 Dose: 10 mg Documented By: JUANITA Morphine Sulfate (Morphine Sulfate 4 Mg/Ml 1 Ml Carp\Vial) 4 mg IV NOW STA Stop: 04/28/23 09:45 Last Admin: 04/28/23 11:17 Dose: 4 mg Documented By: AIDA Morphine Sulfate (Morphine Sulfate 4 Mg/Ml 1 Ml Carp\Vial) 4 mg IV NOW STA Stop: 04/28/23 12:33 Last Admin: 04/28/23 12:39 Dose: 4 mg Documented By: AIDA Ondansetron HCl (Ondansetron Inj 2 Mg/Ml 2 Ml Vial) 4 mg IV NOW STA Stop: 04/28/23 07:40 Last Admin: 04/28/23 07:53 Dose: 4 mg Documented By: JUANITA Ondansetron HCl (Ondansetron Inj 2 Mg/Ml 2 Ml Vial) 4 mg IV NOW STA Stop: 04/28/23 08:51 Last Admin: 04/28/23 08:59 Dose: 4 mg Documented By: JUANITA Medical Decision Making Medical Records Attestation: I reviewed the patient's medical records. Home Medications was personally reviewed by me Laboratory Data Attestation: I reviewed the patient's lab results. 04/28/23 07:36 04/28/23 07:36 Lab Results 04/28/23 Range/Units 07:36 WBC 8.13 (4.8-10.8) K/ul RBC 4.70 (4.20-5.40) M/uL Hgb 13.8 (12.0-16.0) g/dl Hct 40.0 (37.0-47.0) % MCV 85.1 (80.0-100.0) fL MCH 29.4 (25.0-34.0) pg MCHC 34.5 (32.0-36.0) g/dL RDW Std Deviation 36.6 (36.4-46.3) fL RDW Coeff of Nay 11.9 (11.5-14.5) % Plt Count 287 (130-400) K/uL MPV 10.4 (9.4-12.4) fL Immature Gran % (Auto) 0.2 % Neut % (Auto) 75.4 % Lymph % (Auto) 16.5 % [place] % (Auto) 7.3 % Eos % (Auto) 0.4 % Baso % (Auto) 0.2 % Neut # (Auto) 6.13 (1.40-6.50) K/uL Lymph # (Auto) 1.34 (1.20-3.40) K/uL [place] # (Auto) 0.59 (0.11-0.59) K/uL Eos # (Auto) 0.03 (0.00-0.50) K/uL Baso # (Auto) 0.02 (0.00-0.20) K/uL Immature Gran # (Auto) 0.02 (0.01-0.20) K/uL Sodium 137 (136-145) mmol/L Potassium 3.5 (3.5-5.1) mmol/L Chloride 103 (98-107) mmol/L Carbon Dioxide 23 (21-32) mmol/L Anion Gap 11 (3-11) BUN 6 (6-23) mg/dl Creatinine 0.68 (0.6-1.2) mg/dl Est Cr Clr Drug Dosing 142.7 ml/min Est GFR ( Amer) 145.9 ml/min Est GFR (Non-Af Amer) 125.9 ml/min BUN/Creatinine Ratio 8.8 L (10-20) Glucose 127 H (70-99(Fasting)) mg/dl Calcium 10.7 H (8.6-10.3) mg/dl Total Bilirubin 0.7 (0.2-1.0) mg/dl AST 17 (13-39) U/L ALT 14 (7-52) U/L Alkaline Phosphatase 91 (34-104) U/L Total Protein 8.0 (6.0-8.3) gm/dl Albumin 4.8 (3.4-5.0) gm/dl Globulin 3.2 (2.5-4.0) gm/dl Albumin/Globulin Ratio 1.5 (0.9-2) Lipase 10 L (11-82) U/L Imaging Data Attestation: I personally reviewed and interpreted this imaging study as follows: My Impression: My interpretation of a repeat pelvic ultrasound does not show evidence for ovarian torsion or obvious ruptured cyst, with radiologist measuring the cyst at 4.7 cm, and similar in appearance to yesterday's ultrasound studies. Radiologist report was also reviewed with concurrence. Radiologist's Impression: Pelvis Ultrasound 04/28/23 07:39 ULTRASOUND OF THE PELVIS CLINICAL HISTORY: Left pelvic pain. COMPARISON STUDY: Pelvic CT and ultrasound dated 04/27/2023. TECHNIQUE: Real-time, grayscale, and color flow sonography of the pelvis is performed transabdominally. Images are reviewed in the transverse and longitudinal planes. The patient declined endovaginal examination. FINDINGS: Uterus: The uterus is normal in size and echotexture, measuring 6.7 x 2.6 x 3.4 cm. Endometrium: The endometrium is normal in appearance, and the endometrial stripe is normal in thickness measuring up to 0.2 cm. Ovaries: The ovaries are normal in size and morphology. The right ovary measures 3.9 x 1.4 x 1.8 cm and the left ovary measures 5.9 x 3.2 x 5.4 cm. A 4.7 cm simple cyst is noted in the left ovary. Additional smaller follicles are seen bilaterally. Normal Doppler waveforms are shown within both ovaries. Pelvis: There is trace free fluid in the cul-de-sac. No concerning adnexal lesion is seen. IMPRESSION: 1. There is a 4.7 cm simple appearing left ovarian cyst. This is similar in appearance to yesterday. 2. There is no sonographic evidence of ovarian torsion at the time of examination. 3. There is trace nonspecific free fluid in the cul-de-sac ACT 112: Negative or not required by law. Electronically signed by: Shahram Spangler M.D. 04/28/2023 9:54 AM MDM Narrative See ED Course section for further details of today's visit. The patient presents with complaint of persistent abdominal pain and nausea/vomiting. The patient was seen in the emergency department last night with both a CT with IV contrast of the abdomen pelvis, and pelvic ultrasound suggestive of a left ovarian cyst with less likelihood of ovarian rupture or torsion. CT imaging otherwise of the abdomen and pelvis was read as normal, however because of progressively worsening pain, and normal ultrasound findings today, I did ask our radiologist to overread the CT scan from yesterday, with radiologist concerns for a complex small bowel obstruction, possible closed-loop type. I did reach out to Dr. Davey, general surgeon who evaluated the patient, and has recommended hospitalist admission. He will further discuss workup options with radiology, with possible laparoscopic procedure if symptoms persist or worsen. Laboratory studies today are not suggestive of pancreatitis, cholecystitis, hepatitis, UTI or . Impression Small bowel obstruction, Cyst of left ovary, Status post laparoscopic appendectomy Discharge Plan Visit Data Chief Complaint: Pelvic Pain Stated Complaint: RUPTURED OVARIAN CYST-PAIN MEDS NOT WORKING ED Provider: Roverto James ED Midlevel Provider: Pratik Miller Discharge Problem: Small bowel obstruction, Cyst of left ovary, Status post laparoscopic appendectomy
[2023-04-28 07:59] LABS: Basophils # (auto) 0.02 K/uL (0.00-0.20); Basophils % (auto) 0.2 %; Eosinophils # (auto) 0.03 K/uL (0.00-0.50); Eosinophils % (auto) 0.4 %; Hemoglobin 13.8 g/dl (12.0-16.0); Immature Granulocytes # (auto) 0.02 K/uL (0.01-0.20); Immature Granulocytes % (auto) 0.2 %; Lymphocytes # (auto) 1.34 K/uL (1.20-3.40); Lymphocytes % (auto) 16.5 %; Mean Corpuscular Hemoglobin 29.4 pg (25.0-34.0); Mean Corpuscular Hgb Conc 34.5 g/dL (32.0-36.0); Mean Corpuscular Volume 85.1 fL (80.0-100.0); Mean Platelet Volume 10.4 fL (9.4-12.4); Monocytes # (auto) 0.59 K/uL (0.11-0.59); Monocytes % (auto) 7.3 %; Neutrophils # (auto) 6.13 K/uL (1.40-6.50); Neutrophils % (auto) 75.4 %; Platelet Count 287 K/uL (130-400); RDW Coefficient of Variation 11.9 % (11.5-14.5); RDW Standard Deviation 36.6 fL (36.4-46.3); White Blood Count 8.13 K/ul (4.8-10.8)
[2023-04-28 08:15] LABS: Albumin Globulin Ratio 1.5 (0.9-2); Albumin Level 4.8 gm/dl (3.4-5.0); BUN Creatinine Ratio 8.8 (10-20); Bilirubin,Total 0.7 mg/dl (0.2-1.0); Calcium 10.7 mg/dl (8.6-10.3); Creatinine Clr Calc Pharmacy 142.7 ml/min; Est GFR (African American) 145.9 ml/min; Est GFR (Non-African American) 125.9 ml/min; Globulin 3.2 gm/dl (2.5-4.0); Potassium 3.5 mmol/L (3.5-5.1)
[2023-04-28] MEDS ORDERED: ACETAMINOPHEN 1,000 MG/100 ML VIAL IV STA (08:50)
[2023-04-28] MEDS ORDERED: KETOROLAC TROMETHAMINE 15 MG/ML VIAL IV ONE (08:50)
--- NOTE | 2023-04-28 09:55 | Ultrasound Report ---
ULTRASOUND OF THE PELVIS CLINICAL HISTORY: Left pelvic pain. COMPARISON STUDY: Pelvic CT and ultrasound dated 04/27/2023. TECHNIQUE: Real-time, grayscale, and color flow sonography of the pelvis is performed transabdominall y. Images are reviewed in the transverse and longitudinal planes. The patient declined endovaginal ex amination. FINDINGS: Uterus: The uterus is normal in size and echotexture, measuring 6.7 x 2.6 x 3.4 cm. Endometrium: The endometrium is normal in appearance, and the endometrial stripe is normal in thickne ss measuring up to 0.2 cm. Ovaries: The ovaries are normal in size and morphology. The right ovary measures 3.9 x 1.4 x 1.8 cm a nd the left ovary measures 5.9 x 3.2 x 5.4 cm. A 4.7 cm simple cyst is noted in the left ovary. Addit ional smaller follicles are seen bilaterally. Normal Doppler waveforms are shown within both ovaries. Pelvis: There is trace free fluid in the cul-de-sac. No concerning adnexal lesion is seen. IMPRESSION: 1. There is a 4.7 cm simple appearing left ovarian cyst. This is similar in appearance to yesterday. 2. There is no sonographic evidence of ovarian torsion at the time of examination. 3. There is trace nonspecific free fluid in the cul-de-sac ACT 112: Negative or not required by law. Electronically signed by: Shahram Spangler M.D. 04/28/2023 9:54 AM
[2023-04-28] MEDS: MoRPHine SULFATE 4 MG/ML 1 ML CARP\\VIAL IV STA ×2 (10:09→11:17)
[2023-04-28 10:23] LABS: Appearance Urine Clear (Clear); Bilirubin Urine Negative (Negative); Blood Urine Negative (Negative); Color Urine Yellow; Glucose Urine UA Negative (Negative); Ketones Urine Trace (Negative); Leukocyte Esterase Urine Negative (Negative); Nitrite Urine Negative (Negative); Protein Urine Negative (Negative); Urobilinogen Urine Negative (Negative); pH Urine 8.5 (4.5-7.5)
[2023-04-28] MEDS ORDERED: PROMETHAZINE 12.5 MG/50.5 ML BAG IV STA (10:57)
--- NOTE | 2023-04-28 11:53 | Surgery Consultation ---
Date of Consultation April 28, 2023 Assessment & Plan (1) Cyst of left ovary: (2) History of laparoscopic appendectomy: (3) Small bowel obstruction: Plan 22-year-old woman 3 weeks status post laparoscopic appendectomy, uneventful, presents with diffuse lower abdominal pain. CT scan demonstrates what appears to be a developing bowel obstruction. She is not tachycardic, afebrile, no white blood cell count. We will admit her to the medicine service and observe her for now. IV hydration. She may need an NG tube if she continues to have nausea and vomiting. Depending on her symptomatology, we may proceed with upper GI with small bowel follow-through tomorrow. We will follow along. If she clinically deteriorates, she will require immediate operative intervention. History of Present Illness Reason for Consultation: Possible small bowel obstruction Requesting Physician: Ti Miller PA-C Attending Physician: Ti Miller PA-C History of Present Illness 22-year-old woman presents 3 weeks status post uneventful laparoscopic appendectomy with sudden onset of lower abdominal pain starting Friday evening. the she also noted nausea and vomiting. Her last bowel movement was Friday. She was diagnosed with possible ovarian cyst and was discharged with pain medicine and Zofran. She states the pain continued as well as the nausea. She vomited twice last night. She returned to the emergency department. CT scan was reread as possible small bowel obstruction. She currently denies flatus. Allergies Allergy/AdvReac Type Severity Reaction Status Date / Time No Known Allergies Allergy Unverified 04/06/23 19:41 Home Medications Medication Instructions Recorded Confirmed Type No Known Home Medications 04/28/23 04/28/23 History Patient History Medical History Cyst of left ovary Acute appendicitis Surgical History History of laparoscopic appendectomy Social History Smoking Status: Never smoker Second Hand Exposure: No; Do You Dip or Chew Tobacco: No; Hx Alcohol Use: Yes Alcohol type: other Hx Substance Use: No Preferred Language: Argentine Communication Ability: Effective Chorus Dancer Required: No Beliefs That Will Affect Care: None Current Living Situation: Other Current Living Situation Comment: roommates Feels Safe at Home: Yes Assistive Devices: None Review of Systems Review of Systems: All systems reviewed & are unremarkable except as noted in HPI & below Physical Exam Constitutional: WD/WN, vitals as above Eyes: PERRL, conjunctivae normal, anicteric sclerae Neck: trachea midline, no thyromegaly Respiratory: normal respiratory effort; no respiratory distress and no labored breathing Cardiovascular: Rate/Rhythm: regular rate and regular rhythm Gastrointestinal (Abdomen): Inspection/Auscultation: abdomen normal to inspection; abdomen not distended Percussion/Palpation: + abdomen tender ( Right side) and abdomen soft; no guarding, abdomen not rigid, no hernia and no abdominal mass Skin: no rashes, warm and dry Psychiatric: A+Ox3, euthymic affect Results & Data Vital Signs (Past 12 Hours) Vital Signs Temp Pulse Pulse Resp BP BP Pulse Ox 04/28/23 10:07 87 L 04/28/23 10:00 61 16 135/95 98 04/28/23 09:55 73 20 139/88 94 04/28/23 09:00 64 16 140/89 99 04/28/23 08:30 64 14 140/94 100 04/28/23 08:20 77 16 134/89 98 04/28/23 08:00 77 19 132/97 98 04/28/23 07:40 79 16 134/90 98 04/28/23 07:39 68 16 134/90 98 04/28/23 07:25 36.5 C 88 16 139/94 97 O2 Del Method O2 Flow Rate 04/28/23 10:07 Room Air 0 04/28/23 10:00 Room Air 04/28/23 09:55 Room Air 04/28/23 09:00 Room Air 04/28/23 08:30 Room Air 04/28/23 08:20 Room Air 04/28/23 08:00 Room Air 04/28/23 07:40 Room Air 04/28/23 07:39 Room Air 04/28/23 07:25 Room Air Laboratory Results 04/28/23 04/28/23 Range/Units Unknown 07:36 WBC 8.13 (4.8-10.8) K/ul RBC 4.70 (4.20-5.40) M/uL Hgb 13.8 (12.0-16.0) g/dl Hct 40.0 (37.0-47.0) % MCV 85.1 (80.0-100.0) fL MCH 29.4 (25.0-34.0) pg MCHC 34.5 (32.0-36.0) g/dL RDW Std Deviation 36.6 (36.4-46.3) fL RDW Coeff of Nay 11.9 (11.5-14.5) % Plt Count 287 (130-400) K/uL MPV 10.4 (9.4-12.4) fL Immature Gran % (Auto) 0.2 % Neut % (Auto) 75.4 % Lymph % (Auto) 16.5 % [place] % (Auto) 7.3 % Eos % (Auto) 0.4 % Baso % (Auto) 0.2 % Neut # (Auto) 6.13 (1.40-6.50) K/uL Lymph # (Auto) 1.34 (1.20-3.40) K/uL [place] # (Auto) 0.59 (0.11-0.59) K/uL Eos # (Auto) 0.03 (0.00-0.50) K/uL Baso # (Auto) 0.02 (0.00-0.20) K/uL Immature Gran # (Auto) 0.02 (0.01-0.20) K/uL Sodium 137 (136-145) mmol/L Potassium 3.5 (3.5-5.1) mmol/L Chloride 103 (98-107) mmol/L Carbon Dioxide 23 (21-32) mmol/L Anion Gap 11 (3-11) BUN 6 (6-23) mg/dl Creatinine 0.68 (0.6-1.2) mg/dl Est Cr Clr Drug Dosing 142.7 ml/min Est GFR ( Amer) 145.9 ml/min Est GFR (Non-Af Amer) 125.9 ml/min BUN/Creatinine Ratio 8.8 L (10-20) Glucose 127 H (70-99(Fasting)) mg/dl Calcium 10.7 H (8.6-10.3) mg/dl Total Bilirubin 0.7 (0.2-1.0) mg/dl AST 17 (13-39) U/L ALT 14 (7-52) U/L Alkaline Phosphatase 91 (34-104) U/L Total Protein 8.0 (6.0-8.3) gm/dl Albumin 4.8 (3.4-5.0) gm/dl Globulin 3.2 (2.5-4.0) gm/dl Albumin/Globulin Ratio 1.5 (0.9-2) Lipase 10 L (11-82) U/L Urine Color Yellow Urine Appearance Clear (Clear) Urine pH 8.5 H (4.5-7.5) Ur Specific [place] 1.010 (1.000-1.030) Urine Protein Negative (Negative) Urine Glucose (UA) Negative (Negative) Urine Ketones Trace H (Negative) Urine Blood Negative (Negative) Urine Nitrite Negative (Negative) Urine Bilirubin Negative (Negative) Urine Urobilinogen Negative (Negative) Ur Leukocyte Esterase Negative (Negative)
--- NOTE | 2023-04-28 12:08 | History & Physical Report ---
Date of Service April 28, 2023 Assessment & Plan (1) Small bowel obstruction: Plan: CTA/P 04/27 over read on 04/28. Consistent with high-grade small bowel obstruction with a complex transition point in the right lower quadrant. Closed obstruction is not excluded Surgery emergently consulted in ER. Imaging reviewed. Patient recommended for medical admission with surgical consultation and serial exams. No surgical intervention recommended @ admit. SBFT potentially tomorrow, no re-imaging on admission recommended. Serial exams. Patient with 10 out of 10 prior to admission, improved to 1/10 after 10 mg Toradol 753, 4mg morphine, 0.5mg hydromorphone. Increasing pain 3/4 out of 10 for which she received morphine 4 mg while in ER with improvement. Surgery updated. NGT ordered. Serial exam remains similar. Admitted to medical telemetry. Normotensive, no tachycardia. Lactate is normal. - Zofran as needed for nausea Tylenol first-line every 8 hours IV. Breakthrough hydromorphone 0.5mg Q3h contract mail carrier pending. Hold for sedation, narcan contract mail carrier. Serial exams ordered - If deteriorating --> will need immediate surgical intervention. (2) History of laparoscopic appendectomy: Plan: S/p lap appendectomy 04/05/2023 Tender surrounding surgical site, CT with SBO and complex transition point surgery following as noted No leukocytosis, afebrile. No signs of infection (3) Abdominal pain: Plan DVT PPx: Low Risk, SCD Diet: Strict NPO CODE: Full Dispo: Med Tele History of Present Illness Primary Care Provider: [facility] Yesterday around 6pm developed a stomachache and abdominal pain. TUMS did not help. Had a CT which was suspicious for an ovarian cyst. Was sent home with ZOfran and Oxy. Woke up ~5am nauseus and with 1x episode of nonbloody/nonmelanic emesis. Continued to be nauseus, pain increasing and took 1x oxy and 1x zofran. No minutes later vomited again. Pain is worst in her RLQ. 10/10 at its worst, currently 1/10. She is not passing any gas. Last BM Friday (2 days [employer]). NO nausea after after zofan. Dry heaved twice, and emesis once. No fever. Has had sweats and chills in the last 24 hours. Uncontrollable shakes this morning which have subsided. Noc hest pain, no chest pressure Has been peeing a normal amount, but peeing does cause pain to radiate into her abdomen. Does not have a burning sensation/dysuria. No history of bowel surgery prior to appendicitis. Medical History: Reviewed Medications: Reviewed. No chronic medications. Took tylenol 650mg x1 at 6pm, TUMS last night. Surgical History: Reviewed Family history: Reviewed Allergies: Reviewed. NKDA Social History: NO tobacco products or vape use. Rare alcohol, none recently Code Status: Full Allergies Allergy/AdvReac Type Severity Reaction Status Date / Time No Known Allergies Allergy Unverified 04/06/23 19:41 Home Medications Medication Instructions Recorded Confirmed Type No Known Home Medications 04/28/23 04/28/23 History Past Med/Surg History Medical History Cyst of left ovary Acute appendicitis Surgical History History of laparoscopic appendectomy Social History Smoking Status: Never smoker Second Hand Exposure: No; Do You Dip or Chew Tobacco: No; Hx Alcohol Use: Yes Alcohol type: other Hx Substance Use: No Preferred Language: Vietnamese Communication Ability: Effective Inventory Control Supervisor Required: No Beliefs That Will Affect Care: None Current Living Situation: Other Current Living Situation Comment: roommates Feels Safe at Home: Yes Assistive Devices: None Physical Exam Physical Exam: General: A&Ox3. Uncomfortable but nontoxic. HEENT: Atraumatic, normocephalic. PERLAA, EoM intact. Vision/hearing intact Pulm: CTAB A&P. -wheezes, -rales, -rhonchi. Symmetrical chest rise. No increased work of breathing. No respiratory distress. Cardiac: RRR, -mrg. Radial pulses intact and symmetrical. Abdominal: TTP at RLQ. Minimal TTP at LLQ without rebound/guarding/radiating pain. No involuntary guarding. BS diminished in LQ, absent in UQ. Ext: warm, dry Results & Data Results & Data Vital Signs (Past 12 Hours) Vital Signs Temp Pulse Pulse Resp BP BP Pulse Ox 04/28/23 10:07 87 L 04/28/23 10:00 61 16 135/95 98 04/28/23 09:55 73 20 139/88 94 04/28/23 09:00 64 16 140/89 99 04/28/23 08:30 64 14 140/94 100 04/28/23 08:20 77 16 134/89 98 04/28/23 08:00 77 19 132/97 98 04/28/23 07:40 79 16 134/90 98 04/28/23 07:39 68 16 134/90 98 04/28/23 07:25 36.5 C 88 16 139/94 97 O2 Del Method O2 Flow Rate 04/28/23 10:07 Room Air 0 04/28/23 10:00 Room Air 04/28/23 09:55 Room Air 04/28/23 09:00 Room Air 04/28/23 08:30 Room Air 04/28/23 08:20 Room Air 04/28/23 08:00 Room Air 04/28/23 07:40 Room Air 04/28/23 07:39 Room Air 04/28/23 07:25 Room Air PG Care Time/CCT Total # of Minutes Spent Total Time Spent with Patient: Total time spent is greater than 50% in coordination of care (as documented) at patient's floor/unit and/or counseling patient: Coding Level of Care Code 44821 INT INP/OBS CARE MIN Diagnoses Small bowel obstruction K56.609 History of laparoscopic appendectomy Z90.49 Abdominal pain R10.9 Abdominal location: unspecified location (3) Abdominal pain Abdominal location: unspecified location Qualified Code(s): R10.9 - Unspecified abdominal pain
[2023-04-28] MEDS ORDERED: MoRPHine SULFATE 4 MG/ML 1 ML CARP\\VIAL IV STA (12:32)
[2023-04-28] MEDS ORDERED: HYDROmorphone INJ 0.5 MG/0.5 ML SYR IV PRN (12:33)
[2023-04-28] MEDS ORDERED: NALOXONE HCL 0.4 MG/1 ML VIAL/CARP IV PRN (12:33)
--- NOTE | 2023-04-28 14:26 | XRay Report ---
KUB CLINICAL HISTORY: Placement of NGT COMPARISON STUDY: CT of the abdomen and pelvis April 27, 2023. FINDINGS: Tip of nasogastric tube is within the distal body of the stomach. Multiple loops of moderat sara dilated small bowel are noted within visualized portions of the abdomen. These are partially imag ed on this exam. IMPRESSION: 1. Tip of nasogastric tube within the distal body of the stomach. 2. Findings consistent with a persistent small bowel obstruction. ACT 112: Negative or not required by law. Electronically signed by: Shiv Sparrow M.D. 04/28/2023 2:24 PM
[2023-04-28] MEDS: PLASMA-LYTE A 1,000 ML IV SCH ×2 (14:50→23:35)
[2023-04-28] MEDS: POTASSIUM CHLORIDE / WTR 10 MEQ/100 ML PLCT IV SCH ×2 (15:19→16:19)
[2023-04-28] MEDS: ONDANSETRON INJ 2 MG/ML 2 ML VIAL IV PRN ×2 (15:20→21:20)
[2023-04-28] MEDS ORDERED: PROMETHAZINE HCL 6.25 MG in SODIUM CHLORIDE 0.9% 50 ML IV STA (18:32)
[2023-04-28] MEDS: HYDROmorphone INJ 0.5 MG/0.5 ML SYR IV PRN ×2 (20:08→23:11)
[2023-04-28] MEDS: ACETAMINOPHEN 1,000 MG/100 ML VIAL IV PRN (23:12)
[2023-04-29] MEDS: HYDROmorphone INJ 0.5 MG/0.5 ML SYR IV PRN ×2 (02:42→05:04)
[2023-04-29] MEDS: ONDANSETRON INJ 2 MG/ML 2 ML VIAL IV PRN ×2 (04:36→09:27)
[2023-04-29] MEDS ORDERED: HYDROmorphone INJ 0.5 MG/0.5 ML SYR IV STA ×2 (04:56→05:45)
[2023-04-29 05:51] LABS: Basophils # (auto) 0.02 K/uL (0.00-0.20); Basophils % (auto) 0.2 %; Eosinophils # (auto) 0.02 K/uL (0.00-0.50); Eosinophils % (auto) 0.2 %; Hemoglobin 13.3 g/dl (12.0-16.0); Immature Granulocytes # (auto) 0.03 K/uL (0.01-0.20); Immature Granulocytes % (auto) 0.3 %; Lymphocytes # (auto) 1.35 K/uL (1.20-3.40); Lymphocytes % (auto) 13.7 %; Mean Corpuscular Hemoglobin 29.7 pg (25.0-34.0); Mean Corpuscular Hgb Conc 34.1 g/dL (32.0-36.0); Mean Corpuscular Volume 87.1 fL (80.0-100.0); Mean Platelet Volume 10.3 fL (9.4-12.4); Monocytes # (auto) 0.86 K/uL (0.11-0.59); Monocytes % (auto) 8.7 %; Neutrophils # (auto) 7.55 K/uL (1.40-6.50); Neutrophils % (auto) 76.9 %; Platelet Count 240 K/uL (130-400); RDW Coefficient of Variation 12.1 % (11.5-14.5); RDW Standard Deviation 38.7 fL (36.4-46.3); Red Blood Count 4.48 M/uL (4.20-5.40); White Blood Count 9.83 K/ul (4.8-10.8)
[2023-04-29 06:01] LABS: BUN Creatinine Ratio 7.9 (10-20); Calcium 8.9 mg/dl (8.6-10.3); Est GFR (African American) 149.7 ml/min; Est GFR (Non-African American) 129.1 ml/min; Potassium 3.4 mmol/L (3.5-5.1)
--- NOTE | 2023-04-29 06:02 | Communication Note ---
Date of Service: April 29, 2023 Patient developed nausea and vomiting while attempting to use the restroom at approximately 5:00 AM this morning. I evaluated the patient at the bedside shortly thereafter. The patient notes that she has some generalized abdominal pain and feels nauseous despite having NG tube in place. Both myself and nursing staff verified position of the patient's NG tube with auscultation. I did discuss with the nurse attending the patient the patient has not much in the way of NG tube output. She does note that the emesis the patient had was not large-v olume. In addition, the nurse notes that the patient has been hemodynamically stable without hypotension or fever. She did develop some tachycardia while she was having emesis but this has resolved. On physical exam patient is awake and alert and oriented x 3. Her abdomen is mildly distended and tympanic to percussion. She has generalized pain with percussion throughout her abdomen. Due to the patient's nausea and vomiting I did check a KUB. This showed that the tip of the NG tube did appear to be in the stomach with the proximal port hole in the proximal stomach in close proximity to the diaphragm. There did not appear to be any free air on this study. There again was noted to be multiple loops of dilated small bowel on the study. The patient's a.m. labs were drawn and a CBC revealed that white blood cell count, hemoglobin, hematocrit, and platelet count are all within normal range. Chemistry profile shows sodium is 137 with a potassium of 3.4. Her BUN and creatinine are both nonelevated. The patient is complaining of persistent abdominal pain. I did discuss with the nurse pain medicines that were administered and she did receive 1000 mg of intravenous Tylenol at approximately 1135 on 04/28/2023 and a dose of 0.25 mg of intravenous Dilaudid at approximately 3:00 AM on 04/21/2023. As the patient is having continued abdominal pain we will administer another dose of 0.25 mg of intravenous Dilaudid now. Will supplement the patient's potassium. In addition, we will advance the NG tube approximately 5 cm and placed back to suction to see if this helps alleviate any of the patient's nausea. Will notify Dr. Davey the patient's primary surgeon of these events. Further plans will be forthcoming based on Dr. Davey's assessment.
[2023-04-29] MEDS ORDERED: PROCHLORPERAZINE 5 MG in SYRINGE 4 ML IV ONE (06:15)
[2023-04-29] MEDS ORDERED: POTASSIUM CHLORIDE / WTR 10 MEQ/100 ML PLCT IV ONE (06:30)
--- NOTE | 2023-04-29 06:51 | XRay Report ---
KUB CLINICAL HISTORY: Small bowel obstruction. COMPARISON STUDY: CT of the abdomen and pelvis April 27, 2023. KUB April 28, 2023. FINDINGS: The tip of the nasogastric tube is within the body of the stomach. Multiple loops of modera tely dilated small bowel measure up to 4.4 cm in caliber. Small bowel dilatation patient has slightly increased since prior CT. No evidence for free air on supine exam. IMPRESSION: 1. Findings consistent with a persistent small bowel obstruction. Mild increase in small bowel dilata tion. 2. Tip of nasogastric tube within the body of the stomach. ACT 112: Negative or not required by law. Electronically signed by: Shiv Sparrow M.D. 04/29/2023 6:49 AM
[2023-04-29] MEDS: MoRPHine SULFATE 2 MG/ML CARP IV PRN ×3 (07:18→20:28)
[2023-04-29] MEDS: ACETAMINOPHEN 1,000 MG/100 ML VIAL IV PRN ×2 (07:45→21:56)
--- NOTE | 2023-04-29 07:46 | Surgery Progress Note ---
Date of Service April 29, 2023 Assessment & Plan (1) Status post laparoscopic appendectomy: (2) Small bowel obstruction: Plan she continues to have significant pain this morning, worsening. We will switch her back to morphine from Dilaudid. Overnight and into today, all Vital signs are stable and normal. she had 1 episode of tachycardia during an episode of vomiting. Lactic acid was 0.9. White blood cell count normal. No fevers. No signs of threatened or ischemic bowel. Due to her level of pain, as well as the time course following the appendectomy and the finding on CT scan, I discussed with her the risks and benefits of an exploratory laparoscopy, possible laparotomy for bowel obstruction. We discussed the possible need for bowel resection if there was any ischemic bowel. I thoroughly discussed all these findings with her and her mother, and all their questions were answered. They are agreeable to proceed with surgery. We will take her to the operating room at the earliest possible convenience this morning. Admission and Anticipated Discharge Date Admission Date: April 28, 2023 Subjective She is continued to have pain overnight. NG tube in place, she did vomit this morning around the NG. No fevers or chills. Physical Exam Physical Exam: AF VSS NAD, A&O x3 abdomen is soft, mild distention, tenderness to palpation right lower quadrant Results & Data Vital Signs (Past 12 Hours) Vital Signs Temp Pulse Pulse Pulse Resp BP BP 04/29/23 06:49 36.8 C 92 H 18 146/97 H 04/29/23 04:55 111 H 18 128/85 04/29/23 03:29 36.7 C 77 18 132/84 04/29/23 00:12 36.8 C 94 H 18 118/82 04/28/23 22:01 68 04/28/23 21:19 70 04/28/23 20:58 36.6 C 80 18 130/98 Pulse Ox O2 Del Method 04/29/23 06:49 95 Room Air 04/29/23 04:55 98 Room Air 04/29/23 03:29 95 Room Air 04/29/23 00:12 96 Room Air 04/28/23 22:01 04/28/23 21:19 04/28/23 20:58 95 Room Air Laboratory Results 04/29/23 04/28/23 04/28/23 Range/Units 05:24 Unknown 12:55 WBC 9.83 (4.8-10.8) K/ul RBC 4.48 (4.20-5.40) M/uL Hgb 13.3 (12.0-16.0) g/dl Hct 39.0 (37.0-47.0) % MCV 87.1 (80.0-100.0) fL MCH 29.7 (25.0-34.0) pg MCHC 34.1 (32.0-36.0) g/dL RDW Std Deviation 38.7 (36.4-46.3) fL RDW Coeff of Nay 12.1 (11.5-14.5) % Plt Count 240 (130-400) K/uL MPV 10.3 (9.4-12.4) fL Immature Gran % (Auto) 0.3 % Neut % (Auto) 76.9 % Lymph % (Auto) 13.7 % [place] % (Auto) 8.7 % Eos % (Auto) 0.2 % Baso % (Auto) 0.2 % Neut # (Auto) 7.55 H (1.40-6.50) K/uL Lymph # (Auto) 1.35 (1.20-3.40) K/uL [place] # (Auto) 0.86 H (0.11-0.59) K/uL Eos # (Auto) 0.02 (0.00-0.50) K/uL Baso # (Auto) 0.02 (0.00-0.20) K/uL Immature Gran # (Auto) 0.03 (0.01-0.20) K/uL Sodium 137 (136-145) mmol/L Potassium 3.4 L (3.5-5.1) mmol/L Chloride 104 (98-107) mmol/L Carbon Dioxide 23 (21-32) mmol/L Anion Gap 10 (3-11) BUN 5 L (6-23) mg/dl Creatinine 0.63 (0.6-1.2) mg/dl Est Cr Clr Drug Dosing 154.0 ml/min Est GFR ( Amer) 149.7 ml/min Est GFR (Non-Af Amer) 129.1 ml/min BUN/Creatinine Ratio 7.9 L (10-20) Glucose 115 H (70-99(Fasting)) mg/dl Lactate 0.9 (0.4-2.0) mmol/L Calcium 8.9 (8.6-10.3) mg/dl Total Bilirubin (0.2-1.0) mg/dl AST (13-39) U/L ALT (7-52) U/L Alkaline Phosphatase (34-104) U/L Total Protein (6.0-8.3) gm/dl Albumin (3.4-5.0) gm/dl Globulin (2.5-4.0) gm/dl Albumin/Globulin Ratio (0.9-2) Lipase (11-82) U/L Urine Color Yellow Urine Appearance Clear (Clear) Urine pH 8.5 H (4.5-7.5) Ur Specific [place] 1.010 (1.000-1.030) Urine Protein Negative (Negative) Urine Glucose (UA) Negative (Negative) Urine Ketones Trace H (Negative) Urine Blood Negative (Negative) Urine Nitrite Negative (Negative) Urine Bilirubin Negative (Negative) Urine Urobilinogen Negative (Negative) Ur Leukocyte Esterase Negative (Negative) 04/28/23 Range/Units 07:36 WBC 8.13 (4.8-10.8) K/ul RBC 4.70 (4.20-5.40) M/uL Hgb 13.8 (12.0-16.0) g/dl Hct 40.0 (37.0-47.0) % MCV 85.1 (80.0-100.0) fL MCH 29.4 (25.0-34.0) pg MCHC 34.5 (32.0-36.0) g/dL RDW Std Deviation 36.6 (36.4-46.3) fL RDW Coeff of Nay 11.9 (11.5-14.5) % Plt Count 287 (130-400) K/uL MPV 10.4 (9.4-12.4) fL Immature Gran % (Auto) 0.2 % Neut % (Auto) 75.4 % Lymph % (Auto) 16.5 % [place] % (Auto) 7.3 % Eos % (Auto) 0.4 % Baso % (Auto) 0.2 % Neut # (Auto) 6.13 (1.40-6.50) K/uL Lymph # (Auto) 1.34 (1.20-3.40) K/uL [place] # (Auto) 0.59 (0.11-0.59) K/uL Eos # (Auto) 0.03 (0.00-0.50) K/uL Baso # (Auto) 0.02 (0.00-0.20) K/uL Immature Gran # (Auto) 0.02 (0.01-0.20) K/uL Sodium 137 (136-145) mmol/L Potassium 3.5 (3.5-5.1) mmol/L Chloride 103 (98-107) mmol/L Carbon Dioxide 23 (21-32) mmol/L Anion Gap 11 (3-11) BUN 6 (6-23) mg/dl Creatinine 0.68 (0.6-1.2) mg/dl Est Cr Clr Drug Dosing 142.7 ml/min Est GFR ( Amer) 145.9 ml/min Est GFR (Non-Af Amer) 125.9 ml/min BUN/Creatinine Ratio 8.8 L (10-20) Glucose 127 H (70-99(Fasting)) mg/dl Lactate (0.4-2.0) mmol/L Calcium 10.7 H (8.6-10.3) mg/dl Total Bilirubin 0.7 (0.2-1.0) mg/dl AST 17 (13-39) U/L ALT 14 (7-52) U/L Alkaline Phosphatase 91 (34-104) U/L Total Protein 8.0 (6.0-8.3) gm/dl Albumin 4.8 (3.4-5.0) gm/dl Globulin 3.2 (2.5-4.0) gm/dl Albumin/Globulin Ratio 1.5 (0.9-2) Lipase 10 L (11-82) U/L Urine Color Urine Appearance (Clear) Urine pH (4.5-7.5) Ur Specific [place] (1.000-1.030) Urine Protein (Negative) Urine Glucose (UA) (Negative) Urine Ketones (Negative) Urine Blood (Negative) Urine Nitrite (Negative) Urine Bilirubin (Negative) Urine Urobilinogen (Negative) Ur Leukocyte Esterase (Negative)
[2023-04-29] MEDS: PLASMA-LYTE A 1,000 ML IV SCH (08:03)
--- NOTE | 2023-04-29 09:22 | Anesthesiology Consultation ---
Date of Service April 29, 2023 Assessment & Plan (1) Encounter for pre-operative examination: Chart Review Chart Review: Acceptable Risk for Surgery and Patient NOT seen in Pre Admission Testing Consults Requested none History Surgery Operation Date: 04/29/23 11:40 Proposed Procedures p Exploratory Laparoscopy, Possible Exploratory Laparotomy, Lysis of Adhesions, Possible Bowel Resection - Ion Davey MD Height/Weight Height: 5 ft 10 in Weight: 76.9 kg Allergies Allergy/AdvReac Type Severity Reaction Status Date / Time No Known Allergies Allergy Unverified 04/06/23 19:41 Medications Home Medications Medication Instructions Recorded Confirmed Last Taken No Known Home Medications 04/28/23 04/28/23 Unknown Active Medications Generic Name Dose Route Start Last Admin Trade Name Freq PRN Reason Stop Dose Admin Acetaminophen 1,000 mg in 100 mls @ 400 mls/hr 04/28/23 12:38 04/29/23 08:28 Ofirmev IV 05/01/23 12:37 Infused Q8H PRN Infusion pain, first line Morphine Sulfate 2 mg 04/29/23 07:13 04/29/23 09:15 Morphine Sulfate 2 Mg/Ml Carp IV 05/13/23 07:12 2 mg Q2HWA PRN Administration Pain Ondansetron HCl 4 mg 04/28/23 12:38 04/29/23 04:36 Ondansetron Inj 2 Mg/Ml 2 Ml Vial IV 05/28/23 12:37 4 mg Q4H PRN Administration Nausea Past Medical History Medical History (Updated 04/29/23 @ 09:22 by Maxwell Tello MD) Encounter for pre-operative examination Small bowel obstruction Cyst of left ovary Acute appendicitis Surgery note 04/29/23: (1) Status post laparoscopic appendectomy: (2) Small bowel obstruction: Plan she continues to have significant pain this morning, worsening. We will switch her back to morphine from Dilaudid. Overnight and into today, all Vital signs are stable and normal. she had 1 episode of tachycardia during an episode of vomiting. Lactic acid was 0.9. White blood cell count normal. No fevers. No signs of threatened or ischemic bowel. Due to her level of pain, as well as the time course following the appendectomy and the finding on CT scan, I discussed with her the risks and benefits of an exploratory laparoscopy, possible laparotomy for bowel obstruction. We discussed the possible need for bowel resection if there was any ischemic bowel. I thoroughly discussed all these findings with her and her mother, and all their questions were answered. They are agreeable to proceed with surgery. We will take her to the operating room at the earliest possible convenience this morning. Past Surgical History Surgical History History of laparoscopic appendectomy lap appy 04/06/23: Dr. Davey at [facility]. GETA. Grade 1 view. No issues. Social History Smoking Status: Never smoker Do You Dip or Chew Tobacco: No Hx Alcohol Use: Yes Alcohol type: beer alcohol intake frequency: a few times a month Hx Substance Use: No Physical Exam Vital Signs Last Vital Signs Temp 36.8 C 04/29/23 06:49 Pulse 92 H 04/29/23 06:49 Resp 18 04/29/23 06:49 BP 146/97 H 04/29/23 06:49 Pulse Ox 95 04/29/23 06:49 O2 Del Method Room Air 04/29/23 06:49 O2 Flow Rate 0 04/28/23 10:07 Testing Laboratory Results 04/29/23 05:24 04/29/23 05:24 Urine Color Yellow 04/28/23 Unknown Urine Appearance Clear (Clear) 04/28/23 Unknown Urine pH 8.5 (4.5-7.5) H 04/28/23 Unknown Ur Specific [place] 1.010 (1.000-1.030) 04/28/23 Unknown Urine Protein Negative (Negative) 04/28/23 Unknown Urine Glucose (UA) Negative (Negative) 04/28/23 Unknown Urine Ketones Trace (Negative) H 04/28/23 Unknown Urine Nitrite Negative (Negative) 04/28/23 Unknown Ur Leukocyte Esterase Negative (Negative) 04/28/23 Unknown HCG negative from 04/06/23
[2023-04-29] MEDS ORDERED: PROPOFOL IV EMULSION 10 MG/ML 20 ML VIAL IV ONE (10:34)
[2023-04-29] MEDS ORDERED: MIDAZOLAM HCL 1 MG/ML 2ML VIAL ONE (10:34)
[2023-04-29] MEDS ORDERED: LIDOCAINE 2% 2 ML VIAL/AMP(20MG/ML) INFIL ONE (10:34)
[2023-04-29] MEDS ORDERED: fentaNYL citrate PF 100 MCG/2 ML VIAL ONE ×2 (10:34→11:23)
[2023-04-29] MEDS ORDERED: DEXAMETHASONE SOD INJ 4 MG/ML VIAL ONE (10:34)
[2023-04-29] MEDS ORDERED: ONDANSETRON INJ 2 MG/ML 2 ML VIAL ONE (10:34)
[2023-04-29] MEDS ORDERED: ONDANSETRON INJ 2 MG/ML 2 ML VIAL IV PRN (10:54)
[2023-04-29] MEDS ORDERED: ATROPINE SULFATE 0.1 MG/ML 10ML SYR IV PRN (10:54)
[2023-04-29] MEDS ORDERED: fentaNYL citrate PF 100 MCG/2 ML VIAL IV PRN (10:54)
[2023-04-29] MEDS ORDERED: PROMETHAZINE HCL 6.25 MG in SODIUM CHLORIDE 0.9% 50 ML IV PRN (10:54)
[2023-04-29] MEDS ORDERED: ePHEDrine sulfate 50 MG/ML AMP IV PRN (10:54)
[2023-04-29] MEDS ORDERED: MoRPHine SULFATE 10 MG/ML CARP/VIAL IV PRN (10:54)
[2023-04-29] MEDS ORDERED: ceFAZolin 2000MG 2,000 MG/15 ML SYR IV ONE (10:58)
[2023-04-29] MEDS ORDERED: ceFAZolin 2,000 MG/15 ML IV PUSH IV ONE (11:00)
--- NOTE | 2023-04-29 11:01 | History & Physical Bridge Note ---
Date of Service April 29, 2023 History & Physical Bridge Note I have examined the patient, reviewed the History & Physical and in the interval since the performance of the History & Physical I have noted the following changes of clinical significance: no changes noted
--- NOTE | 2023-04-29 11:01 | Surgery Progress Note ---
Date of Service April 29, 2023 Assessment & Plan (1) Status post laparoscopic appendectomy: (2) Small bowel obstruction: Plan had a long discussion with her and her family concerning the small bowel obstruction. I discussed with the OR, and we are able to move up the surgery. We discussed the risk benefits of the surgery, consent has been obtained. All her questions were answered. We will take her to the operating room As soon as possible. Admission and Anticipated Discharge Date Admission Date: April 28, 2023 Subjective I reevaluated her on the floor. She continues to have significant pain in the lower abdomen. Vitals continue to be normal. No current nausea or vomiting. No fevers. Physical Exam Physical Exam: AF VSS NAD, A&O x3 Heart regular rate and rhythm Lungs: Clear to auscultation bilaterally abdomen is soft, mild distention, tenderness to palpation right lower quadrant Results & Data Vital Signs (Past 12 Hours) Vital Signs Temp Pulse Resp BP Pulse Ox O2 Del Method 04/29/23 06:49 36.8 C 92 H 18 146/97 H 95 Room Air 04/29/23 04:55 111 H 18 128/85 98 Room Air 04/29/23 03:29 36.7 C 77 18 132/84 95 Room Air 04/29/23 00:12 36.8 C 94 H 18 118/82 96 Room Air
[2023-04-29] MEDS ORDERED: BUPIVACAINE 0.5 % 5 MG/1 ML MPF 30ML VIAL ONE (11:16)
[2023-04-29] MEDS ORDERED: KETOROLAC 30 MG/ML VIAL ONE (11:55)
[2023-04-29] MEDS ORDERED: SUCCINYLCHOLINE CHLORIDE 20 MG/ML 10 ML VIAL IV ONE (11:55)
[2023-04-29] MEDS ORDERED: ROCURONIUM BROMIDE 10 MG/ML 5 ML VIAL IV ONE (11:55)
[2023-04-29] MEDS ORDERED: SUGAMMADEX SODIUM 200 MG/2 ML VIAL IV ONE (11:55)
--- NOTE | 2023-04-29 12:12 | Post Operative Brief Note ---
Immediate Post Op Note v1 Date of Surgery April 29, 2023 Pre & Post Diagnosis Operation Date: 04/29/23 11:40 Pre-Op Diagnosis: Small bowel obstruction, adhesion. Post-Op Diagnosis: Small bowel obstruction, adhesion. I identified the patient and participated in the time-out.: Yes Procedure Operation Date: 04/29/23 11:40 Actual Procedures p Exploratory Laparoscopy, Lysis of Adhesions, Release of bowel obstruction. - Ion Davey MD Surgeon Ion Davey MD Member [employer] none Estimated Blood Loss 5 Findings Consistent with Post-Op Diagnosis Drains Champagne Catheter and Suprapubic Catheter (Nasogastric tube to right nare prior to room.)
--- NOTE | 2023-04-29 12:52 | Anesthesiology Progress Note ---
Date of Service April 29, 2023 Anesthesia Post Procedure Vital Signs Vital Signs: Temp Pulse Pulse Pulse Resp BP BP 04/29/23 12:50 97.9 F 87 13 125/76 04/29/23 12:40 84 13 118/77 04/29/23 12:30 106 H 12 114/71 04/29/23 12:21 98.6 F 95 H 12 117/78 04/29/23 06:49 98.2 F 92 H 18 146/97 H 04/29/23 04:55 111 H 18 128/85 04/29/23 03:29 98.1 F 77 18 132/84 04/29/23 00:12 98.2 F 94 H 18 118/82 04/28/23 22:01 68 04/28/23 21:19 70 04/28/23 20:58 97.9 F 80 18 130/98 04/28/23 19:00 58 L 16 130/85 04/28/23 19:00 Pulse Ox Pulse Ox O2 Del Method O2 Del Method O2 Flow Rate 04/29/23 12:50 96 Room Air 0 04/29/23 12:40 100 Oxymask 4 04/29/23 12:30 100 Oxymask 6 04/29/23 12:21 100 Oxymask 10 04/29/23 06:49 95 Room Air 04/29/23 04:55 98 Room Air 04/29/23 03:29 95 Room Air 04/29/23 00:12 96 Room Air 04/28/23 22:01 04/28/23 21:19 04/28/23 20:58 95 Room Air 04/28/23 19:00 96 Room Air 04/28/23 19:00 96 Room Air Pain Intensity Abdomen: Pain Intensity: 6 Transfer of Care Handoff Completed per policy Notes Mental Status: alert / awake / arousable and participated in evaluation Patient Amnestic to Procedure: Yes Nausea / Vomiting: adequately controlled Pain: adequately controlled Airway Patency, RR, SpO2: stable & adequate BP & HR: stable & adequate Hydration State: stable & adequate Anesthetic Complications: no major complications apparent and Pt Satisfied with anesthetic care
[2023-04-29] MEDS: PANTOprazole 40 MG in SYRINGE 0 ML IV SCH (13:25)
[2023-04-29] MEDS: D5NSS + 20MEQ KCL 20 MEQ/1,000 ML BAG IV SCH ×2 (13:25→22:56)
--- NOTE | 2023-04-29 16:21 | Hospitalist Progress Note ---
Date of Service April 29, 2023 Assessment & Plan (1) Small bowel obstruction: Plan: Abdomen pelvic CT scan consistent with high-grade small bowel obstruction with a complex transition point in the right lower quadrant. She underwent exploratory laparotomy today, April 21, by general surgery and was found to have adhesions which were lysed. No bowel resection needed. NG tube is in place. She is on IV fluids. (2) History of laparoscopic appendectomy: Plan: S/p lap appendectomy 04/05/2023. Adhesions are likely cause of current small bowel obstruction and this was confirmed at the time of exploratory laparotomy today, April 29 (3) Abdominal pain: Plan: Due to small bowel obstruction. Now resolved. Continue pain control measures Plan Anticipate eventual discharge to home soon Admission and Anticipated Discharge Date Admission Date: April 28, 2023 Subjective The patient was seen postoperatively and is somnolent from anesthesia but arousable. She had exploratory laparotomy with lysis of adhesions which was causing the small bowel obstruction. She underwent laparoscopic appendectomy in April of this year. Potassium replacement is underway. NG tube is in place. IV fluids continue. She is n.p.o. Review of Systems 2 Review of Systems: The patient is unable to answer any questions regarding review of systems at this time Physical Exam 2 Physical Exam: General-somnolent postoperatively but arousable. No fever HEENT-head atraumatic and normocephalic, pupils equal and reactive to light, extraocular muscles intact. NG tube is in place Neck-no lymphadenopathy or thyromegaly, trachea midline Chest-clear to auscultation anteriorly. No rales or wheezing Cardiac-regular rate and rhythm, normal S1 and S2 Abdomen-quiet abdomen. Nondistended Extremities-no cyanosis, clubbing, or edema Neuro-somnolent postoperatively. Easily awakens and moves all extremities randomly. Psych-cannot assess Results & Data Results & Data Vital Signs (Past 12 Hours) Vital Signs Temp Pulse Pulse Pulse Resp BP BP 04/29/23 15:33 80 04/29/23 15:26 36.8 C 84 18 110/71 04/29/23 14:04 36.5 C 77 18 108/69 04/29/23 13:34 36.8 C 82 18 118/77 04/29/23 13:00 77 13 116/75 04/29/23 12:50 36.6 C 87 13 125/76 04/29/23 12:40 84 13 118/77 04/29/23 12:30 106 H 12 114/71 04/29/23 12:21 37.0 C 95 H 12 117/78 04/29/23 06:49 36.8 C 92 H 18 146/97 H 04/29/23 04:55 111 H 18 128/85 Pulse Ox O2 Del Method O2 Flow Rate 04/29/23 15:33 04/29/23 15:26 95 Room Air 04/29/23 14:04 94 Room Air 04/29/23 13:34 95 Room Air 04/29/23 13:00 96 Room Air 0 04/29/23 12:50 96 Room Air 0 04/29/23 12:40 100 Oxymask 4 04/29/23 12:30 100 Oxymask 6 04/29/23 12:21 100 Oxymask 10 04/29/23 06:49 95 Room Air 04/29/23 04:55 98 Room Air Laboratory Results 04/29/23 05:24 04/29/23 05:24 PG Care Time/CCT Total # of Minutes Spent Total Time Spent with Patient: Total time spent is greater than 50% in coordination of care (as documented) at patient's floor/unit and/or counseling patient: Coding Level of Care Code 70174 SUB INP/OBS CARE 3/50MIN Diagnoses Small bowel obstruction K56.609 History of laparoscopic appendectomy Z90.49 Abdominal pain R10.9 Abdominal location: unspecified location (3) Abdominal pain Abdominal location: unspecified location Qualified Code(s): R10.9 - Unspecified abdominal pain
[2023-04-29] MEDS: CHLORASEPTIC 1.4% SOLN 180 ML BTL MT PRN (21:13)
[2023-04-30] MEDS: CHLORASEPTIC 1.4% SOLN 180 ML BTL MT PRN ×2 (03:53→07:31)
[2023-04-30] MEDS: MoRPHine SULFATE 2 MG/ML CARP IV PRN ×4 (05:23→16:34)
[2023-04-30 06:39] LABS: Basophils # (auto) 0.01 K/uL (0.00-0.20); Basophils % (auto) 0.2 %; Eosinophils # (auto) 0.04 K/uL (0.00-0.50); Eosinophils % (auto) 0.7 %; Hematocrit (blood only) 35.9 % (37.0-47.0); Hemoglobin 11.9 g/dl (12.0-16.0); Immature Granulocytes # (auto) 0.01 K/uL (0.01-0.20); Immature Granulocytes % (auto) 0.2 %; Lymphocytes # (auto) 1.67 K/uL (1.20-3.40); Lymphocytes % (auto) 27.5 %; Mean Corpuscular Hgb Conc 33.1 g/dL (32.0-36.0); Mean Corpuscular Volume 87.6 fL (80.0-100.0); Mean Platelet Volume 10.2 fL (9.4-12.4); Monocytes # (auto) 0.95 K/uL (0.11-0.59); Monocytes % (auto) 15.7 %; Neutrophils # (auto) 3.39 K/uL (1.40-6.50); Neutrophils % (auto) 55.7 %; Platelet Count 202 K/uL (130-400); RDW Coefficient of Variation 12.2 % (11.5-14.5); RDW Standard Deviation 39.6 fL (36.4-46.3); White Blood Count 6.07 K/ul (4.8-10.8)
[2023-04-30 07:02] LABS: Anion Gap 4 (3-11); BUN Creatinine Ratio 13.8 (10-20); Blood Urea Nitrogen 8 mg/dl (6-23); Calcium 8.4 mg/dl (8.6-10.3); Carbon Dioxide 27 mmol/L (21-32); Chloride 108 mmol/L (98-107); Creatinine Clr Calc Pharmacy 167.3 ml/min; Est GFR (African American) > 150.0 ml/min; Est GFR (Non-African American) 132.7 ml/min; Glucose 103 mg/dl (70-99(Fasting)); Potassium 3.7 mmol/L (3.5-5.1); Sodium 139 mmol/L (136-145)
[2023-04-30] MEDS: ACETAMINOPHEN 1,000 MG/100 ML VIAL IV PRN ×2 (07:29→19:58)
--- NOTE | 2023-04-30 08:08 | Hospitalist Progress Note ---
Date of Service April 30, 2023 Assessment & Plan (1) Small bowel obstruction: Plan: Recent lap appy w/ Dr Ion Davey 04/06 presented with abdominal pain/nausea/vomiting CTAP c/w high-grade small bowel obstruction with a complex transition point in the right lower quadrant. General surgery consulted s/p exploratory laparotomy 04/[address] Davey found w/ adhesions, lysed. No resection required. -NGT/mackey post-operatively -Clamping NGT -- to check @ 4 hours -- if minimal/no n/v can remove WBC wnl, afebrile PPI once daily for GI proph, SCDs for DVT proph. Will add Lovenox SQ for chemoproph IVF continued Pain control, antiemetics prn Electrolyte/mag replacement Encourage incentive spirometer -- order placed Monitor labs in AM (2) History of laparoscopic appendectomy: Plan: S/p lap appendectomy 04/05/2023. Adhesions are likely cause of current small bowel obstruction and this was confirmed at the time of exploratory laparotomy, April 29 plan as outlined above (3) Abdominal pain: Plan: Due to small bowel obstruction, now s/p OR w/ lysis of adhesions Reporting less abdominal pain, now passing gas Pain control/ambulation encouraged NPO for now until return of bowel function (4) Hypomagnesemia: Plan: checked mag given admitted w/ SBO, 1.5. 3gm IV ordered Monitor level in AM (5) Vitamin D deficiency: Plan: low , checked given elevated Ca in past (in setting n/v/dehydration/obstruction) to r/o other causes obstruction however adhesions as above Vit D 18.7, per patient on 4000IU daily per VETERANS' COORDINATOR recently can resume her usual Vit D once taking PO Plan continued inpatient stay, possible NGT removal today surgery following, appreciate recs/assistance likely downgrade off telemetry today Admission and Anticipated Discharge Date Admission Date: April 28, 2023 Supervising Physician Co-Signing Physician Notes The patient was not seen by me. The chart was reviewed. Case discussed with JNAELL Camacho. Agree with assessment and plan Subjective Evaluated this morning, sitting up in bed, father at bedside.Reports feeling much better since admission. OR yesterday for lysis of adhesions. reports passing some gas. NGT clamped this morning and if no residual at 1130 planning for removal. Has mackey in place but likely to discontinue today if able to get up/ambulate. Pain controlled with ordered medications. No fever/chills, chest pain, shortness of breath at present. Discussed holding off diet until return of bowel function. Discussed low mag/vitamin D. She reports starting Vit D replacement w/ VETERANS' COORDINATOR 4000IU daily, would continue. no hx stones. Questions/concerns addressed at this time. Physical Exam 2 Physical Exam: General: WD/WN female sitting up in bed, NAD HEENT: head atraumatic, normocephalic, NGT in place Resp: even/unlabored, slightly reduced in the bases but no w/c/r, on room air CV: RRR, no significant m/r/g, no pitting edema/calf tenderness GI: faint BS, diffusely tender to palpation, slight distension but soft, no rigidity, lap sites look good, heating pad in place : mackey draining clear yellow urine MSK/Neuro: nonfocal, answering questions appropriately, no slurred speech/facial droop Psych: AOX3, cooperative with exam Results & Data Results & Data Vital Signs (Past 12 Hours) Vital Signs Temp Pulse Pulse Pulse Resp BP Pulse Ox 04/30/23 07:50 36.8 C 77 16 118/75 98 04/30/23 07:46 04/30/23 07:16 77 04/30/23 05:13 36.8 C 86 16 113/76 97 04/29/23 23:21 36.8 C 70 16 117/78 94 04/29/23 21:52 89 O2 Del Method 04/30/23 07:50 Room Air 04/30/23 07:46 Room Air 04/30/23 07:16 04/30/23 05:13 Room Air 04/29/23 23:21 Room Air 04/29/23 21:52 Laboratory Results 04/30/23 06:03 04/30/23 06:03 PG Care Time/CCT Total # of Minutes Spent Total Time Spent with Patient: Total time spent is greater than 50% in coordination of care (as documented) at patient's floor/unit and/or counseling patient: Coding Level of Care Code 97622 SUB INP/OBS CARE 3/50MIN Diagnoses Small bowel obstruction K56.609 History of laparoscopic appendectomy Z90.49 Abdominal pain R10.9 Abdominal location: unspecified location Hypomagnesemia E83.42 Vitamin D deficiency E55.9 (3) Abdominal pain Abdominal location: unspecified location Qualified Code(s): R10.9 - Unspecified abdominal pain
--- NOTE | 2023-04-30 08:29 | Surgery Progress Note ---
Date of Service April 30, 2023 Assessment & Plan (1) Small bowel obstruction: (2) Status post laparoscopic appendectomy: Plan pod 1. S/p exploratory laparoscopy with lysis of adhesions for small-bowel obstruction Doing well Remove Champagne catheter Clamp NG tube. Check residual at 4 hrs - if minimal residual and no nausea /vomiting, remove NG tube at that time incentive spirometry, encourage out of bed ambulation DVT prophylaxis with SCD boots and Lovenox. Awaiting return of bowel function Admission and Anticipated Discharge Date Admission Date: April 28, 2023 Subjective Pod 1. S/p exploratory laparoscopy with lysis of adhesions for small-bowel obstruction. She is doing fairly well. Moderate pain controlled with pain medication; no nausea or vomiting; NG tube in place; passing a small amount of flatus. No bowel movements. No fever overnight Physical Exam Physical Exam: AF VSS NAD, A & O x3 abdomen soft, mild TTP diffusely; mild distention Incisions C/ D/ I; Dermabond in place Results & Data Vital Signs (Past 12 Hours) Vital Signs Temp Pulse Pulse Pulse Resp BP Pulse Ox 04/30/23 07:50 36.8 C 77 16 118/75 98 04/30/23 07:46 04/30/23 07:16 77 04/30/23 05:13 36.8 C 86 16 113/76 97 04/29/23 23:21 36.8 C 70 16 117/78 94 04/29/23 21:52 89 O2 Del Method 04/30/23 07:50 Room Air 04/30/23 07:46 Room Air 04/30/23 07:16 04/30/23 05:13 Room Air 04/29/23 23:21 Room Air 04/29/23 21:52 Laboratory Results 04/30/23 Range/Units 06:03 WBC 6.07 (4.8-10.8) K/ul RBC 4.10 L (4.20-5.40) M/uL Hgb 11.9 L (12.0-16.0) g/dl Hct 35.9 L (37.0-47.0) % MCV 87.6 (80.0-100.0) fL MCH 29.0 (25.0-34.0) pg MCHC 33.1 (32.0-36.0) g/dL RDW Std Deviation 39.6 (36.4-46.3) fL RDW Coeff of Nay 12.2 (11.5-14.5) % Plt Count 202 (130-400) K/uL MPV 10.2 (9.4-12.4) fL Immature Gran % (Auto) 0.2 % Neut % (Auto) 55.7 % Lymph % (Auto) 27.5 % Baxter % (Auto) 15.7 % Eos % (Auto) 0.7 % Baso % (Auto) 0.2 % Neut # (Auto) 3.39 (1.40-6.50) K/uL Lymph # (Auto) 1.67 (1.20-3.40) K/uL Baxter # (Auto) 0.95 H (0.11-0.59) K/uL Eos # (Auto) 0.04 (0.00-0.50) K/uL Baso # (Auto) 0.01 (0.00-0.20) K/uL Immature Gran # (Auto) 0.01 (0.01-0.20) K/uL Sodium 139 (136-145) mmol/L Potassium 3.7 (3.5-5.1) mmol/L Chloride 108 H (98-107) mmol/L Carbon Dioxide 27 (21-32) mmol/L Anion Gap 4 (3-11) BUN 8 (6-23) mg/dl Creatinine 0.58 L (0.6-1.2) mg/dl Est Cr Clr Drug Dosing 167.3 ml/min Est GFR ( Amer) > 150.0 ml/min Est GFR (Non-Af Amer) 132.7 ml/min BUN/Creatinine Ratio 13.8 (10-20) Glucose 103 H (70-99(Fasting)) mg/dl Calcium 8.4 L (8.6-10.3) mg/dl
[2023-04-30] MEDS: D5NSS + 20MEQ KCL 20 MEQ/1,000 ML BAG IV SCH (09:00)
[2023-04-30] MEDS: MAGNESIUM SULFATE / D5W 1 GM/100 ML BAG IV SCH ×3 (11:44→16:34)
[2023-04-30] MEDS: ENOXAPARIN INJ 40 MG/0.4 ML SYR SQ SCH (13:36)
[2023-04-30] MEDS: PANTOprazole 40 MG in SYRINGE 0 ML IV SCH (13:36)
[2023-05-01] MEDS: D5NSS + 20MEQ KCL 20 MEQ/1,000 ML BAG IV SCH ×3 (01:16→11:14)
[2023-05-01 07:35] LABS: Basophils # (auto) 0.03 K/uL (0.00-0.20); Basophils % (auto) 0.5 %; Eosinophils % (auto) 1.8 %; Hematocrit (blood only) 31.4 % (37.0-47.0); Hemoglobin 10.5 g/dl (12.0-16.0); Immature Granulocytes # (auto) 0.01 K/uL (0.01-0.20); Immature Granulocytes % (auto) 0.2 %; Lymphocytes # (auto) 2.65 K/uL (1.20-3.40); Lymphocytes % (auto) 47.2 %; Mean Corpuscular Hemoglobin 29.2 pg (25.0-34.0); Mean Corpuscular Hgb Conc 33.4 g/dL (32.0-36.0); Mean Corpuscular Volume 87.2 fL (80.0-100.0); Mean Platelet Volume 10.3 fL (9.4-12.4); Monocytes # (auto) 0.48 K/uL (0.11-0.59); Monocytes % (auto) 8.6 %; Neutrophils # (auto) 2.34 K/uL (1.40-6.50); Neutrophils % (auto) 41.7 %; Platelet Count 187 K/uL (130-400); RDW Coefficient of Variation 12.4 % (11.5-14.5); RDW Standard Deviation 39.7 fL (36.4-46.3); White Blood Count 5.61 K/ul (4.8-10.8)
[2023-05-01 07:49] LABS: Anion Gap 3 (3-11); Blood Urea Nitrogen 6 mg/dl (6-23); Calcium 8.7 mg/dl (8.6-10.3); Carbon Dioxide 30 mmol/L (21-32); Chloride 106 mmol/L (98-107); Creatinine Clr Calc Pharmacy 161.7 ml/min; Est GFR (African American) > 150.0 ml/min; Est GFR (Non-African American) 131.2 ml/min; Glucose 93 mg/dl (70-99(Fasting)); Magnesium 1.7 mg/dl (1.7-2.4); Potassium 3.8 mmol/L (3.5-5.1); Sodium 139 mmol/L (136-145)
[2023-05-01] MEDS: ENOXAPARIN INJ 40 MG/0.4 ML SYR SQ SCH ×2 (08:45→11:31)
[2023-05-01] MEDS ORDERED: MAGNESIUM SULFATE / D5W 1 GM/100 ML BAG IV ONE (08:51)
--- NOTE | 2023-05-01 08:54 | Hospitalist Progress Note ---
Date of Service May 01, 2023 Assessment & Plan (1) Small bowel obstruction: Plan: Recent lap appy w/ Dr Ion Davey 04/06 presented with abdominal pain/nausea/vomiting CTAP c/w high-grade small bowel obstruction with a complex transition point in the right lower quadrant. General surgery consulted s/p exploratory laparotomy 04/[address] Davey found w/ adhesions, lysed. No resection required. NGT removed 04/30. No further vomiting reported WBC wnl, afebrile PPI once daily for GI prophylaxis [id number] + 20k @ 100cc/hr -- will decrease to 75cc/hr for now until keeping up w/ PO. Diet advanced to clear liquids for this morning, adv as tolerated Mag replacement IV 04/30, improved on repeat labs. additional 1gm to keep closer to 2 Incentive spirometer encouraged SCDs ordered for DVT proph, added Lovenox (patient declined past 2 doses-- encouraged compliance) Ambulation encouraged Patient wanting possible dc today but hasn't been out of bed much. Discussed would want +BM prior to discharge. Likely benefit from inpatient stay overnight and advancement to low fiber in AM per discussion w/ surgery but will monitor. Updated father 05/01. Does report patient w/ some anxiety about having roommate, but also discussed wanting to make sure she is safe for dc. (2) History of laparoscopic appendectomy: Plan: S/p lap appendectomy 04/05/2023. Adhesions are likely cause of current small bowel obstruction and this was confirmed at the time of exploratory laparotomy, April 29 plan as outlined above (3) Abdominal pain: Plan: Due to small bowel obstruction, now s/p OR w/ lysis of adhesions Reporting less abdominal pain, now passing gas Pain control/ambulation encouraged Pain improved, NGT removed Clear liquid diet for today, monitor ability to advance (4) Hypomagnesemia: Plan: checked mag given admitted w/ SBO, 1.5. 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 The chart was reviewed. Case discussed with JANELL Camacho. Agree with assessment and plan Subjective Patient evaluated this morning, appears much better. Passing gas, getting clear liquid diet. Declined Lovenox but seemed agreeable, RN to try to administer. Encouraged ambulation to assist with bowel movement. Patient inquiring about possible discharge today. Discussed will touch base w/ surgery but would ideally WANT her to have bowel movement prior to consideration for discharge. No fever/chills, chest pain, shortness of breath, nausea at this time. Physical Exam 2 Physical Exam: General: WD/WN female sitting up in bed, NAD, appears MUCH more comfortable HEENT: head atraumatic, normocephalic,mmm, trachea midline Resp: even/unlabored, no w/c/r, on room air CV: RRR, no significant m/r/g, no pitting edema/calf tenderness GI: faint BS, tender to palpation around incisions (DECREASED), soft, heating pad in place : no mackey MSK/Neuro: nonfocal, answering questions appropriately, no slurred speech/facial droop Psych: AOX3, cooperative with exam Results & Data Results & Data Vital Signs (Past 12 Hours) Vital Signs Temp Pulse Resp BP BP Pulse Ox O2 Del Method 05/01/23 07:52 36.7 C 75 16 102/66 97 Room Air 04/30/23 22:18 36.7 C 68 14 114/76 97 Room Air Laboratory Results 05/01/23 07:00 05/01/23 07:00 Mag 1.7 PG Care Time/CCT Total # of Minutes Spent Total Time Spent with Patient: Total time spent is greater than 50% in coordination of care (as documented) at patient's floor/unit and/or counseling patient: Coding Level of Care Code 12630 SUB INP/OBS CARE 2/35MIN Diagnoses Small bowel obstruction K56.609 History of laparoscopic appendectomy Z90.49 Abdominal pain R10.9 Abdominal location: unspecified location Hypomagnesemia E83.42 Vitamin D deficiency E55.9 (3) Abdominal pain Abdominal location: unspecified location Qualified Code(s): R10.9 - Unspecified abdominal pain
--- NOTE | 2023-05-01 09:43 | Surgery Progress Note ---
Date of Service May 01, 2023 Assessment & Plan (1) Small bowel obstruction: (2) Status post laparoscopic appendectomy: Plan POD#2 s/p exploratory laparoscopy with lysis of adhesions for small-bowel obstruction Doing well continues to pass flatus; advance to clears now advance diet as tolerated incentive spirometry, encourage out of bed ambulation DVT prophylaxis with SCD boots and Lovenox - she refused lovenox last evening - discussed with her the need for Lovenox to prevent blood clots given her surgery. seems agreeable. will have the nurse give her the lovenox today. 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 minimal pain. no nausea/vomiting. passing flatus Physical Exam Physical Exam: AF VSS NAD, A & O x3 abdomen soft, mild TTP diffusely; mild distention Incisions C/ D/ I; Dermabond in place Results & Data Vital Signs (Past 12 Hours) Vital Signs Temp Pulse Resp BP BP Pulse Ox O2 Del Method 05/01/23 07:52 36.7 C 75 16 102/66 97 Room Air 04/30/23 22:18 36.7 C 68 14 114/76 97 Room Air Laboratory Results 05/01/23 04/30/23 Range/Units 07:00 08:48 WBC 5.61 (4.8-10.8) K/ul RBC 3.60 L (4.20-5.40) M/uL Hgb 10.5 L (12.0-16.0) g/dl Hct 31.4 L (37.0-47.0) % MCV 87.2 (80.0-100.0) fL MCH 29.2 (25.0-34.0) pg MCHC 33.4 (32.0-36.0) g/dL RDW Std Deviation 39.7 (36.4-46.3) fL RDW Coeff of Nay 12.4 (11.5-14.5) % Plt Count 187 (130-400) K/uL MPV 10.3 (9.4-12.4) fL Immature Gran % (Auto) 0.2 % Neut % (Auto) 41.7 % Lymph % (Auto) 47.2 % Dane % (Auto) 8.6 % Eos % (Auto) 1.8 % Baso % (Auto) 0.5 % Neut # (Auto) 2.34 (1.40-6.50) K/uL Lymph # (Auto) 2.65 (1.20-3.40) K/uL Dane # (Auto) 0.48 (0.11-0.59) K/uL Eos # (Auto) 0.10 (0.00-0.50) K/uL Baso # (Auto) 0.03 (0.00-0.20) K/uL Immature Gran # (Auto) 0.01 (0.01-0.20) K/uL Sodium 139 (136-145) mmol/L Potassium 3.8 (3.5-5.1) mmol/L Chloride 106 (98-107) mmol/L Carbon Dioxide 30 (21-32) mmol/L Anion Gap 3 (3-11) BUN 6 (6-23) mg/dl Creatinine 0.60 (0.6-1.2) mg/dl Est Cr Clr Drug Dosing 161.7 ml/min Est GFR ( Amer) > 150.0 ml/min Est GFR (Non-Af Amer) 131.2 ml/min BUN/Creatinine Ratio 10.0 (10-20) Glucose 93 (70-99(Fasting)) mg/dl Calcium 8.7 (8.6-10.3) mg/dl Magnesium 1.7 (1.7-2.4) mg/dl 25-OH Vitamin D Total 18.7 L (20-100) ng/ml
[2023-05-01] MEDS: PANTOprazole 40 MG in SYRINGE 0 ML IV SCH (11:24)
[2023-05-01] MEDS: ACETAMINOPHEN 1,000 MG/100 ML VIAL IV PRN (11:29)
[2023-05-02] MEDS: D5NSS + 20MEQ KCL 20 MEQ/1,000 ML BAG IV SCH (01:16)
[2023-05-02 08:12] LABS: Anion Gap 5 (3-11); BUN Creatinine Ratio 9.8 (10-20); Blood Urea Nitrogen 6 mg/dl (6-23); Carbon Dioxide 29 mmol/L (21-32); Chloride 107 mmol/L (98-107); Creatinine Clr Calc Pharmacy 159.1 ml/min; Est GFR (African American) > 150.0 ml/min; Est GFR (Non-African American) 130.5 ml/min; Glucose 94 mg/dl (70-99(Fasting)); Magnesium 1.6 mg/dl (1.7-2.4); Potassium 3.8 mmol/L (3.5-5.1); Sodium 141 mmol/L (136-145)
--- NOTE | 2023-05-02 09:09 | Surgery Progress Note ---
Date of Service May 02, 2023 Assessment & Plan (1) Small bowel obstruction: (2) Status post laparoscopic appendectomy: Plan POD#3 s/p exploratory laparoscopy with lysis of adhesions for small-bowel obstruction Doing well continuing to pass flatus and had bowel movement this morning regular diet this a.m. incentive spirometry, encourage out of bed ambulation discharge to home today Instructions given Return to clinic in 1 week for follow-up Admission and Anticipated Discharge Date Admission Date: April 28, 2023 Subjective Doing well this morning. Passing flatus. Had bowel movement. No nausea or vomiting. Tolerating clears. Advanced diet to regular this morning. Physical Exam Physical Exam: AF VSS NAD, A & O x3 abdomen soft, mild TTP at incision sites; no distention Incisions C/ D/ I; Dermabond in place Results & Data Vital Signs (Past 12 Hours) Vital Signs Temp Pulse Resp BP BP Pulse Ox O2 Del Method 05/02/23 07:13 36.5 C 70 16 106/73 97 Room Air 05/01/23 21:34 36.8 C 69 18 113/74 98 Room Air
--- NOTE | 2023-05-02 09:13 | Discharge Summary ---
Date of Service May 02, 2023 Admission HPI Per Admitting Provider Yesterday around 6pm developed a stomachache and abdominal pain. TUMS did not help. Had a CT which was suspicious for an ovarian cyst. Was sent home with ZOfran and Oxy. Woke up ~5am nauseus and with 1x episode of nonbloody/nonmelanic emesis. Continued to be nauseus, pain increasing and took 1x oxy and 1x zofran. No minutes later vomited again. Pain is worst in her RLQ. 10/10 at its worst, currently 1/10. She is not passing any gas. 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 NO nausea after after zofan. Dry heaved twice, and emesis once. No fever. Has had sweats and chills in the last 24 hours. Uncontrollable shakes this morning which have subsided. Noc hest pain, no chest pressure Has been peeing a normal amount, but peeing does cause pain to radiate into her abdomen. Does not have a burning sensation/dysuria. No history of bowel surgery prior to appendicitis. Medical History: Reviewed Medications: Reviewed. No chronic medications. Took tylenol 650mg x1 at 6pm, TUMS last night. Surgical History: Reviewed Family history: Reviewed Allergies: Reviewed. NKDA Social History: NO tobacco products or vape use. Rare alcohol, none recently Code Status: Full Admission Exam Per Admitting Provider General: A&Ox3. Uncomfortable but nontoxic. HEENT: Atraumatic, normocephalic. PERLAA, EoM intact. Vision/hearing intact Pulm: CTAB A&P. -wheezes, -rales, -rhonchi. Symmetrical chest rise. No increased work of breathing. No respiratory distress. Cardiac: RRR, -mrg. Radial pulses intact and symmetrical. Abdominal: TTP at RLQ. Minimal TTP at LLQ without rebound/guarding/radiating pain. No involuntary guarding. BS diminished in LQ, absent in UQ. Ext: warm, dry Principal Diagnosis Small Bowel Obstruction, Adhesions Discharge Exam General: WD/WN female sitting up in bed, NAD, appears MUCH more comfortable, wanting to go home, mom/dad at bedside HEENT: head atraumatic, normocephalic,mmm, trachea midline Resp: even/unlabored, no w/c/r, on room air CV: RRR, no significant m/r/g, no pitting edema/calf tenderness GI: +BS, soft, tenderness around incisions, no drainage/erythema/warmth : no mackey MSK/Neuro: nonfocal, answering questions appropriately, no slurred speech/facial droop Psych: AOX3, cooperative with exam Discharge Data Allergies Allergy/AdvReac Type Severity Reaction Status Date / Time No Known Allergies Allergy Unverified 04/06/23 19:41 Consultations 04/28/23 11:58 ED Decision to Admit Stat 04/28/23 13:25 Consult General Surgery Stat Procedures Performed Operation Date: 04/29/23 11:40 Actual Procedures p Exploratory Laparoscopy, Lysis of Adhesions, Release of bowel obstruction. - Ion Davey MD Ordered Studies Pelvis Ultrasound 04/28/23 07:39 ULTRASOUND OF THE PELVIS CLINICAL HISTORY: Left pelvic pain. COMPARISON STUDY: Pelvic CT and ultrasound dated 04/27/2023. TECHNIQUE: Real-time, grayscale, and color flow sonography of the pelvis is performed transabdominally. Images are reviewed in the transverse and longitudinal planes. The patient declined endovaginal examination. FINDINGS: Uterus: The uterus is normal in size and echotexture, measuring 6.7 x 2.6 x 3.4 cm. Endometrium: The endometrium is normal in appearance, and the endometrial stripe is normal in thickness measuring up to 0.2 cm. Ovaries: The ovaries are normal in size and morphology. The right ovary measures 3.9 x 1.4 x 1.8 cm and the left ovary measures 5.9 x 3.2 x 5.4 cm. A 4.7 cm simple cyst is noted in the left ovary. Additional smaller follicles are seen bilaterally. Normal Doppler waveforms are shown within both ovaries. Pelvis: There is trace free fluid in the cul-de-sac. No concerning adnexal lesion is seen. IMPRESSION: 1. There is a 4.7 cm simple appearing left ovarian cyst. This is similar in appearance to yesterday. 2. There is no sonographic evidence of ovarian torsion at the time of examination. 3. There is trace nonspecific free fluid in the cul-de-sac ACT 112: Negative or not required by law. Electronically signed by: Shahram Spangler M.D. 04/28/2023 9:54 AM KUB X-Ray 04/28/23 13:12 KUB CLINICAL HISTORY: Placement of NGT COMPARISON STUDY: CT of the abdomen and pelvis April 27, 2023. FINDINGS: Tip of nasogastric tube is within the distal body of the stomach. Multiple loops of moderately dilated small bowel are noted within visualized portions of the abdomen. These are partially imaged on this exam. IMPRESSION: 1. Tip of nasogastric tube within the distal body of the stomach. 2. Findings consistent with a persistent small bowel obstruction. ACT 112: Negative or not required by law. Electronically signed by: Shiv Sparrow M.D. 04/28/2023 2:24 PM KUB X-Ray 04/29/23 05:20 KUB CLINICAL HISTORY: Small bowel obstruction. COMPARISON STUDY: CT of the abdomen and pelvis April 27, 2023. KUB April 28, 2023. FINDINGS: The tip of the nasogastric tube is within the body of the stomach. Multiple loops of moderately dilated small bowel measure up to 4.4 cm in caliber. Small bowel dilatation patient has slightly increased since prior CT. No evidence for free air on supine exam. IMPRESSION: 1. Findings consistent with a persistent small bowel obstruction. Mild increase in small bowel dilatation. 2. Tip of nasogastric tube within the body of the stomach. ACT 112: Negative or not required by law. Electronically signed by: Shiv Sparrow M.D. 04/29/2023 6:49 AM KUB X-Ray 05/02/23 07:00 XR KUB/Abdomen 1 view CLINICAL HISTORY: follow up SBO TECHNIQUE: 1 view of the abdomen was obtained. Comparison: Comparison is made to abdomen radiograph 04/29/2023 FINDINGS: Lung bases are unremarkable. The osseous structures are grossly unremarkable. The bowel gas pattern is nonobstructive. Small stool burden is seen. IMPRESSION: Interval resolution of previously noted small bowel obstruction. ACT 112: Negative or not required by law. Electronically signed by: Tad Mackenzie M.D. 05/02/2023 9:15 AM Hospital Course (1) Small bowel obstruction: Recent lap marija w/ Dr Ion Davey 04/06 presented with abdominal pain/nausea/vomiting found to have high grade SBO with complex transition point RLQ General surgery was consulted and patient made NPO/supportive care with IV fluids/antiemetics/pain control/electrolyte replacement during inpatient stay. Patient was taken to OR with Dr Davey on 04/29 for ex lap which showed adhesions which were lysed and no resection required. NGT initially placed, clamped without issues/residual and removed 04/30. No further nausea/vomiting. Began to pass flatus 04/21 and diet advanced to clear liquids. Lovenox SQ added for DVT prophylaxis however patient did decline dose on 04/30 and was encouraged to increase ambulation. Did take Lovenox on 04/30 and was up ambulating overnight, diet advanced to full liquids/improvement on KUB and had + BM overnight 05/01-05/02 with resolution in SBO on repeat KUB and patient was advanced to regular diet without increased pain/nausea/or vomiting. No evidence for DVT on exam/no calf tenderness/hypoxia/hypotension. Discussed with surgery and stable for discharge. Dr Davey sent rx for Percocet for breakthrough pain but I discussed with patient/family in room to utilize only if needed and tylenol for baseline control (cautious not to exceed max acetaminophen dose discussed with patient and family present in room) and continue bowel regimen with colace twice daily/low fiber diet x 2 weeks and advance as tolerated and maintain adequate hydration/continued ambulation/incentive spirometer at discharge. To follow up with general surgery in 1 week, PCP in 7-10 days. (2) History of laparoscopic appendectomy: S/p lap appendectomy 04/05/2023 with adhesions as above, s/p ex lap as above for SBO/adhesions. F/u general surgery at discharge as above (3) Abdominal pain: Due to small bowel obstruction, now s/p OR w/ lysis of adhesions and tolerating regular diet/abdominal pain improved and moving her bowels. Pain control as outlined above at discharge with continued bowel regimen (4) Hypomagnesemia: checked mag given admitted w/ SBO, 1.5. 3gm IV ordered and normalized on repeat but again checked and was 1.6 -- IV replacement ordered prior to discharge and encouraged diet w/ magnesium foods/multivitamin Should be stable now that diet advanced beyond liquids at discharge (5) Vitamin D deficiency: low , checked given elevated Ca in past (in setting n/v/dehydration/obstruction) to r/o other causes obstruction however adhesions as above Vit D 18.7, per patient on 4000IU daily per BAG MACHINE HELPER recently and discusssed with patient that she should resume this daily at discharge as previously recommended Plan discharged home with mother/father low fiber diet x 2 weeks (provided information), hydration/incentive spirometer, ambulation, pain control and continued bowel regimen with surgery/PCP follow up Total Time Total Time Spent Total Time Spent (In Minutes): 45 Discharge Plan Discharge Items Patient Disposition: Home - Self-Care Reason For Visit: SBO Discharge Diagnosis: Small Bowel Obstruction Goals: You have been hospitalized for an urgent problem which required surgery. During your stay at [facility], we have made an effort to correct the problem that brought you to the hospital while keeping you as comfortable as possible. Surgery and medications were used to bring your condition under control and your discharge instructions will include directions for any medications you should take after leaving the hospital. Please make sure to follow the advice of your surgeon regarding follow up with the surgeon and with your primary care provider. Activity: Per Instructions section Lifting: No more than 10 pounds Sexual Activity: Wait until after follow-up appointment Exercise/Sports: Wait until after follow-up appointment Driving/Machine Use: if not taking pain medication Non-emergency contact: Primary Care Provider and Surgeon Call non-emergency contact if: you have any medication questions, your symptoms worsen, your pain is not controlled, your pain is worsening, your pain is unusual for you, your temperature is above 101.5, your wound has increased redness, your wound has increased drainage and your wound pain has increased Follow-up/Referrals: Ion Davey MD [Physician] - 05/09/23 11:30 am (arrive at 11:15 -- [facility]) [facility] [Primary Care Provider] - Diet: Regular and Low Fiber Addtl Attending Provider Instructions: You have been hospitalized for abdominal pain and found to have small bowel obstruction which was likely due to prior surgery/adhesions and surgery was consulted and they took down these adhesions. Your diet has been advanced and you have moved your bowels. You have been sent home on pain medication but should use tylenol for non-severe pain. Pain medication can make constipation worse and lead to obstruction. You should continue to stay well hydrated and continue stool softener with colace twice daily for now. You should follow up with Dr Davey in the next 7-10 days to monitor your status after discharge. Take your vitamin D as previously prescribed by BAG MACHINE HELPER. Please follow up with primary care in the next 7-10 days. Please return to the ER with any worsened pain, nausea/vomiting, inability to keep up with oral intake, or for any other symptoms concerning for you. Take care! Addtl Guard Entrance Registrar Provider Instructions: Post-Surgical ~Discharge Instructions Activity Recommendations: - lifting limitation: (10 pounds for 2 weeks), - exercise/sex/sports limit: (nonstrenuous for 2 weeks), - driving or machine use limit: (none for 1 week), - Shower/bathe limit: (may shower beginning tomorrow) Diet: - Resume previous diet SPECIAL CARE INSTRUCTIONS: - May shower in 24 hours. Let water run over area and pat dry. - Leave Dermabond in place. - Call the surgeon's office with any questions or concerns - - (ex. temperature higher than 101 degrees F, excessive bleeding or pain). MEDICATIONS: - Resume previous medications unless instructed otherwise by your surgeon. - Ibuprofen 600 mg every 6 hours with food - Percocet 1 every 4 hours, as needed for pain FOLLOW UP VISIT: - If not already scheduled, please call the office to schedule a two week follow-up appointment. Office number Pending Studies at Discharge: No Stand-Alone Forms: [facility], Work/School Release, Smoking Cessation Medications and DC Order Prescriptions: New oxycodone-acetaminophen [Percocet] 5-325 mg tablet 1 tab PO Q6H PRN (Reason: pain) Qty: 10 0RF docusate sodium [Colace] 100 mg capsule 100 mg PO BID Qty: 30 0RF Discharge Orders: Discharge Order (Routine); Ordered 05/02/23 Ordered By: Judy Winston/Other Patient Handouts: Small Bowel Obstruction, Hypomagnesemia Dc Admission Data Admit Date/Time: 04/28/23 12:51 Attending Provider: Jaison Rojas Admit Provider: Dallas Chen Primary Care Provider: [facility] Other Providers: Dallas Chen; Ion Davey Other Interventions: Discharge Summary Assessment (RN) Last Done: 05/02/23 12:31 Supervising Physician Co-Signing Physician Notes The patient was not seen by me. The chart was reviewed. Case discussed with JANELL Camacho. Agree with assessment and plan. She is medically stable for discharge home today, May 02 Coding Level of Care Code 92120 INP/OBS DISCH >30 MIN Diagnoses Small bowel obstruction K56.609 History of laparoscopic appendectomy Z90.49 Abdominal pain R10.9 Abdominal location: unspecified location Hypomagnesemia E83.42 Vitamin D deficiency E55.9
--- NOTE | 2023-05-02 09:16 | XRay Report ---
XR KUB/Abdomen 1 view CLINICAL HISTORY: follow up SBO TECHNIQUE: 1 view of the abdomen was obtained. Comparison: Comparison is made to abdomen radiograph 04/29/2023 FINDINGS: Lung bases are unremarkable. The osseous structures are grossly unremarkable. The bowel gas pattern i s nonobstructive. Small stool burden is seen. IMPRESSION: Interval resolution of previously noted small bowel obstruction. ACT 112: Negative or not required by law. Electronically signed by: Tad Mackenzie M.D. 05/02/2023 9:15 AM
[2023-05-02] MEDS: MAGNESIUM SULFATE / D5W 1 GM/100 ML BAG IV SCH ×2 (10:05→12:11)
[2023-05-02] MEDS: ENOXAPARIN INJ 40 MG/0.4 ML SYR SQ SCH (10:07)
[2023-05-02] MEDS: PANTOprazole 40 MG in SYRINGE 0 ML IV SCH (12:16)
--- NOTE | 2023-05-07 14:44 | Operative Report ---
Post Operative Report Pre & Post Diagnosis Operation Date: 04/29/23 11:40 Pre-Op Diagnosis: Small bowel obstruction, adhesion. Post-Op Diagnosis: Small bowel obstruction, adhesion. I identified the patient and participated in the time-out.: Yes Procedure Operation Date: 04/29/23 11:40 Actual Procedures p Exploratory Laparoscopy, Lysis of Adhesions, Release of bowel obstruction. - Ion Davey MD Surgeon Ion Davey MD Water Commissioner none Estimated Blood Loss 5 Findings Consistent with Post-Op Diagnosis 1 loop of terminal ileum adhesed to the posterior wall of the abdomen causing the obstruction. Bowel was all viable. Specimens None Drains none Anesthesia Type General Complications no immediate complications Description of Procedure the patient was taken to the operating room, placed supine on the operating table. A time-out was performed, perioperative antibiotics were administered, SCD boots were placed. After adequate anesthesia and analgesia was obtained, Champagne catheter was placed, the patient was prepped and draped in a normal sterile fashion. A supraumbilical incision was made and carried down to subcutaneous tissue. Fascia was grasped with 0 Vicryl sutures and tented up. The fascia was opened down into the preperitoneal space and subsequently the peritoneum was opened. I saw trocar was placed in this location, and the abdomen was insufflated to a pressure of 15 mm Hg. A 10 mm 30 degree laparoscopic was placed into the abdominal cavity. The abdomen was surveyed. There were distended loops of small bowel throughout the abdomen. There was no necrotic or threatened bowel that could be seen initially. Two 5 mm trocars were placed in the left lower quadrant under direct visualization. She was placed in Trendelenburg and slightly to the left. I began by running the bowel towards the terminal ileum. Coming up to the terminal ileum, there was a distended loop of bowel that was adhesed and a looped pattern to the posterior wall of the abdomen/mesentery. Distal to this spot, the bowel was decompressed. Using gentle blunt dissection, I was able to lyse the adhesion and this bowel loop was flipped up into a normal configurati on. This turned out to be a loop a proximally 2 in from the ileocecal valve. Once this adhesion was lysed, fluid in the small bowel began moving freely through the area and into the cecum. The bowel was run from the terminal ileum back towards the ligament of Treitz, and was noted to be in the normal configuration and not twisted on itself. At this point, all trocars removed under direct visualization. The abdomen was desufflated. The fascia in the 12 mm port site was closed with 0 Vicryl suture. Skin was closed with a running 4- 0 Monocryl subcuticular stitch. Dermabond was applied. She tolerated the procedure without complication, was transferred in stable condition to the PACU. All instrument, needle, and sponge counts were correct at the end of the case. I performed the procedure. I attest to the content of the Intraoperative Record and any orders documented therein. Any exceptions are noted below.
== END 2023-05-02 13:35 | disposition home or self-care (01) | DRG 337 ==
LOC: ED 07:22 → EDINP 12:51 → SUATTDRO 12:51 → 2W 16:20 → 3W 04-30 22:17